=== PATIENT | male | born 1960 | race African-American/Black ===

== ENCOUNTER 2020-04-21 11:46 | Emergency (ER) | payer OTHER, SELFPAY ==
[2020-04-21 12:30] VITALS: BP 133/88; PULSE 84; RESP 18; TEMP 36.8; O2SAT 99; BMI 27.3
[2020-04-21 14:09] LABS: COVID-19 Test Negative (Negative)
[2020-04-21 14:22] LABS: Ethanol < 10 mg/dL
[2020-04-21 14:27] LABS: Amphetamine Screen Urine Not Detected (Not Detect); Barbiturates, Urine Not Detected (Not Detect); Benzodiazepines Screen Urine Not Detected (Not Detect); Cannabinoid Screen Urine Not Detected (Not Detect); Cocaine Screen Urine Not Detected (Not Detect); Opiate Screen Urine Not Detected (Not Detect); Phencyclidine Screen Urine Not Detected (Not Detect)
--- NOTE | 2020-04-21 14:51 | ED_ITS ---
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 The [facility] is requesting U tox, ETOH an COVID-19 test. <Anselmo Padgett NP - Last Filed: 04/21/20 14:56> MD complaint: medical clearance requested <Anselmo Padgett NP - Last Filed: 04/21/20 14:56> Compliant with Home Medications: No <Anselmo Padgett NP - Last Filed: 04/21/20 14:56> Treatments Prior to Arrival: none <Anselmo Padgett NP - Last Filed: 04/21/20 14:56> Related Information Home medications: Previous Rx's Medication Instructions Recorded amlodipine 5 mg PO DAILY #30 tab 04/28/20 baclofen 10 mg PO TID #90 tab 04/28/20 gabapentin 300 mg PO BID #60 cap 04/28/20 <Anselmo Padgett NP - Last Filed: 04/21/20 14:56> Allergies/Adverse reactions: Allergies Allergy/AdvReac Type Severity Reaction Status Date / Time No Known Allergies Allergy Verified 04/21/20 12:34 <Anselmo Padgett NP - Last Filed: 04/21/20 14:56> Review of Systems Review of Systems: Constitutional: No Weight loss, No Fever, No Chills, No Night Sweats, No Fatigue, No Malaise ENT/Mouth: No Hearing loss, No Ear Pain, No Nasal Congestion, No Sinus Pain, No Hoarseness, No sore throat, No Rhinorrhea, No Swallowing Difficulty Eyes: No Eye Pain, No Swelling, No Redness, No Foreign Body, No Discharge, No Vision Changes Cardiovascular: No Chest Pain, No SOB, No Dyspnea on Exertion, No Orthopnea, No Edema, No Palpitations Respiratory: No Cough, No Sputum, No Wheezing, No Smoke Exposure, No Dyspnea Gastrointestinal: No Nausea, No Vomiting, No Diarrhea, No Constipation, No abdominal Pain, No Hematochezia, No Melena Genitourinary: no irregular bleeding, No Dysuria, No Urinary Frequency, No Hematuria, No Urinary Incontinence, No Urgency Musculoskeletal: No joint pain, No Myalgias, No Joint Swelling Skin: No Skin Lesions, No rash Neuro: No Weakness, No Numbness, No Paresthesias, No Loss of Consciousness, No Dizziness, No Headache Psych: No Anxiety/Panic, No Depression, No SI/HI/AH/VH, No Social Issues Heme/Lymph: No Bruising, No Bleeding,No Lymphadenopathy Endocrine: No Polyuria, No Polydipsia, No Temperature Intolerance <Anselmo Padgett NP - Last Filed: 04/21/20 14:56> Yes all other systems are reviewed and are negative <Anselmo Padgett NP - Last Filed: 04/21/20 14:56> PMF Past Medical History Medical History: Medical History (Updated 04/30/20 @ 00:00 by Nancy Daubaldo) High cholesterol HTN (hypertension) <Anselmo Padgett NP - Last Filed: 04/21/20 14:56> Social History Social History: Social History Alcohol intake: former Smoking Status: Current every day smoker Advance Directives: No Advance Directives Information Provided: Yes <Anselmo Padgett NP - Last Filed: 04/21/20 14:56> Physical Exam Vital Signs: Vital Signs: Last Vital Signs Temp 98.2 F 04/21/20 12:30 Pulse 84 04/21/20 12:30 Resp 18 04/21/20 12:30 BP 133/88 04/21/20 12:30 Pulse Ox 99 04/21/20 12:30 Body Mass Index 27.3 Reviewed <Anselmo Padgett NP - Last Filed: 04/21/20 14:56> Vital Signs: Last Vital Signs Temp 98.2 F 04/21/20 12:30 Pulse 84 04/21/20 12:30 Resp 18 04/21/20 12:30 BP 133/88 04/21/20 12:30 Pulse Ox 99 04/21/20 12:30 Body Mass Index 27.3 <Jay Ro MD - Last Filed: 04/30/20 07:09> Const: General: cooperative and healthy appearing; No acute distress or intoxicated appearing <[facility] - Last Filed: 04/21/20 14:56> Nutritional Appearance: average body habitus <[facility] - Last Filed: 04/21/20 14:56> Orientation/consciousness: patient oriented x3 <[facility] - Last Filed: 04/21/20 14:56> HENMT: Head: Yes normal to inspection <[facility] - Last Filed: 04/21/20 14:56> Ears: hearing grossly normal bilaterally <[facility] - Last Filed: 04/21/20 14:56> Eyes: General: appearance normal, both eyes and all related structures <[facility] - Last Filed: 04/21/20 14:56> Visual Moyer: normal visual moyer by confrontation <[facility] - Last Filed: 04/21/20 14:56> Neck: Neck: Yes normal visual inspection and No tender <[facility] - Last Filed: 04/21/20 14:56> Thyroid: Thyroid normal <[facility] - Last Filed: 04/21/20 14:56> Chest: Chest palpation & inspection: normal inspection of the chest <[facility] - Last Filed: 04/21/20 14:56> Resp: Effort & Inspection: normal respiratory effort <[facility] - Last Filed: 04/21/20 14:56> Cardio: Jugular venous distension: no JVD <[facility] - Last Filed: 04/21/20 14:56> GI: Inspection: Yes normal to inspection <[facility] - Last Filed: 04/21/20 14:56> Percussion: Yes normal to percussion <[facility] - Last Filed: 04/21/20 14:56> Auscultation: normal bowel sounds <[facility] - Last Filed: 04/21/20 14:56> : General: Yes no CVA tenderness <[facility]org[facility] - Last Filed: 04/21/20 14:56> Back/Spine/Pelvis: Back: no CVA tenderness <Anselmo BrennanMELIDA jorgensen - Last Filed: 04/21/20 14:56> Skin: General skin exam: no rashes or lesions noted <Anselmo MELIDA Padgett - Last Filed: 04/21/20 14:56> Neuro: General: patient oriented x3 <Anselmomakayla Padgett NP - Last Filed: 04/21/20 14:56> Extrem: General: Yes normal to inspection <Anselmo BrennanMELIDA jorgensen - Last Filed: 04/21/20 14:56> Course Course Course Narrative: I have reviewed the chart <Jay Ro MD - Last Filed: 04/30/20 07:09> MDM - Medical Clearance Lab Data Labs: Lab Results 04/21/20 04/21/20 04/21/20 Range/Units 13:30 13:31 13:31 Urine Opiates Screen Not Detected (Not Detect) Ur Barbiturates Screen Not Detected (Not Detect) Ur Phencyclidine Scrn Not Detected (Not Detect) Ur Amphetamines Screen Not Detected (Not Detect) U Benzodiazepines Scrn Not Detected (Not Detect) Urine Cocaine Screen Not Detected (Not Detect) U Marijuana (THC) Screen Not Detected (Not Detect) Ethyl Alcohol < 10 mg/dL COVID-19 ([facility]) Negative (Negative) COVID-19 Clin Com See Note <Anselmomakayla Padgett NP - Last Filed: 04/21/20 14:56> Lab Results 04/21/20 04/21/20 04/21/20 Range/Units 13:30 13:31 13:31 Urine Opiates Screen Not Detected (Not Detect) Ur Barbiturates Screen Not Detected (Not Detect) Ur Phencyclidine Scrn Not Detected (Not Detect) Ur Amphetamines Screen Not Detected (Not Detect) U Benzodiazepines Scrn Not Detected (Not Detect) Urine Cocaine Screen Not Detected (Not Detect) U Marijuana (THC) Screen Not Detected (Not Detect) Ethyl Alcohol < 10 mg/dL COVID-19 ([facility]) Negative (Negative) COVID-19 Clin Com See Note <Jay Ro MD - Last Filed: 04/30/20 07:09> Discharge Plan Discharge Clinical Impression: Encounter for medical clearance for patient hold <Anselmo Padgett NP - Last Filed: 04/21/20 14:56> Patient Disposition: Home, Self-Care <Anselmo Padgett NP - Last Filed: 04/21/20 14:56> Instructions: Medical Clearance for Substance Abuse Treatment (ED) <Anselmo Padgett NP - Last Filed: 04/21/20 14:56> Additional Instructions: Your COVID-19 test was negative today Your alcohol test was negative Her drug screen test was negative You are medically cleared to go to the [facility] Return if any concerns or worsening symptoms Thank you <Anselmo Padgett NP - Last Filed: 04/21/20 14:56> Prescriptions: No Action amlodipine 5 mg tablet 5 mg PO DAILY Qty: 30 RF: 1 baclofen 10 mg tablet 10 mg PO TID Qty: 90 RF: 0 gabapentin 300 mg capsule 300 mg PO BID Qty: 60 RF: 0 <Anselmo Padgett NP - Last Filed: 04/21/20 14:56> Referrals: Physician,None [Primary Care Provider] - 1 week (Primary care doctor as needed) <Anselmo Padgett NP - Last Filed: 04/21/20 14:56> Interventions: ED Discharge Assessment Last Done: 04/21/20 15:05 <Anselmo Padgett NP - Last Filed: 04/21/20 14:56> Discharge Date/Time: 04/21/20 15:07 <Anselmo Padgett NP - Last Filed: 04/21/20 14:56>
== END 2020-04-21 15:07 | disposition home or self-care (01) ==
PROVIDERS: Nurse Practitioner Primary Care; Emergency Provider Emergency Medicine
DX: Z04.89 Encounter for examination and observation for other specified reasons (principal); Z04.9 Encounter for examination and observation for unspecified reason; Z79.899 Other long term (current) drug therapy; I10 Essential (primary) hypertension; F17.200 Nicotine dependence, unspecified, uncomplicated; Z71.6 Tobacco abuse counseling
CPT/HCPCS: 80307; 80320; 87635; 99283

== ENCOUNTER 2020-04-28 13:38 | Emergency (ER) | payer OTHER, SELFPAY ==
--- NOTE | 2020-04-28 15:03 | ED.GENADULT ---
HPI - General Adult General Chief complaint: General Medical Stated complaint: MED REFILL Time Seen by Provider: 04/28/20 15:03 Source: patient Mode of arrival: ambulatory Limitations: no limitations History of Present Illness HPI narrative: Patient recently read acute the currently at the [facility] presenting requesting refill for his routine medication currently in the process of obtaining primary care doctor. His previous primary care was [place] and since he is new to the area he is looking for a new provider to give him his medications and the staff from the [facility] advised patient come here for refills patient has a med rec with him from the [facility]. Patient uses [facility] on [address]. He offers no other complaints. Relieving factors: none Exacerbating factors: none Related Data Previous Rx's Medication Instructions Recorded amlodipine 5 mg PO DAILY #30 tab 04/28/20 baclofen 10 mg PO TID #90 tab 04/28/20 gabapentin 300 mg PO BID #60 cap 04/28/20 Allergies Allergy/AdvReac Type Severity Reaction Status Date / Time No Known Allergies Allergy Verified 04/21/20 12:34 Review of Systems Review of Systems: Constitutional: No Night Sweats, No Fatigue, No Malaise ENT/Mouth:No Rhinorrhea Eyes: No Discharge Cardiovascular: No Chest Pain, No SOB Respiratory: No Cough, No Sputum, No Wheezing, No Smoke Exposure, No Dyspnea Skin: No Skin Lesions, No rash Neuro: No Weakness, No Numbness, No Paresthesias, No Loss of Consciousness, No Dizziness, No Headache Psych: No Anxiety/Panic, No Depression, No SI/HI/AH/VH, No Social Issues Heme/Lymph: No Bruising, No Bleeding,No Lymphadenopathy Endocrine: No Polyuria, No Polydipsia, No Temperature Intolerance Yes all other systems are reviewed and are negative [facility] Social History Social History Alcohol intake: former Smoking Status: Current every day smoker Advance Directives: No Advance Directives Information Provided: Yes Physical Exam Vital Signs: Vital Signs: Reviewed Const: General: cooperative and healthy appearing; No acute distress or intoxicated appearing Nutritional Appearance: average body habitus Orientation/consciousness: patient oriented x3 Neck: Neck: Yes normal visual inspection and No tender Thyroid: Thyroid normal Chest: Chest palpation & inspection: normal inspection of the chest Resp: Effort & Inspection: normal respiratory effort Cardio: Jugular venous distension: no JVD Skin: General skin exam: no rashes or lesions noted Neuro: General: patient oriented x3 Extrem: General: Yes normal to inspection Course Course Course Narrative: He is requesting refill for his amlodipine he takes 5 mg once daily Also baclofen he takes 10 mg 3 times a day Gabapentin 300 mg twice a day Discharge Plan Discharge Clinical Impression: Medication refill Patient Disposition: Home, Self-Care Instructions: Medicine Refill (ED) Additional Instructions: Your prescriptions are sent to the [facility] in [place] Please follow-up with her primary care doctor as discussed Return if any concerns or worsening symptoms Thank you Prescriptions: New amlodipine 5 mg tablet 5 mg PO DAILY Qty: 30 RF: 1 baclofen 10 mg tablet 10 mg PO TID Qty: 90 RF: 0 gabapentin 300 mg capsule 300 mg PO BID Qty: 60 RF: 0 Referrals: Michelle Sahu MD [Primary Care Provider] - 1 week
[2020-04-28 15:21] VITALS: BP 117/78; PULSE 87; RESP 15; TEMP 36.8; O2SAT 98; BMI 27.5
== END 2020-04-28 15:24 | disposition home or self-care (01) ==
PROVIDERS: Emergency Provider Internal Medicine; PCP Internal Medicine
DX: Z76.0 Encounter for issue of repeat prescription (principal)
CPT/HCPCS: 99283

== ENCOUNTER 2020-06-05 10:29 | Emergency (ER) | payer OTHER, SELFPAY ==
[2020-06-05 12:27] VITALS: BP 144/93; PULSE 88; RESP 16; TEMP 37; O2SAT 97; BMI 28.2
--- NOTE | 2020-06-05 12:39 | ED_ITS ---
HPI - Medical Clearance General Chief complaint: Medical Clearance Stated complaint: covid symptoms Time Seen by Provider: 06/05/20 12:26 Source: patient Mode of arrival: ambulatory Limitations: no limitations History of Present Illness HPI Narrative: Patient presents to the ED for COVID testing. Patient states he needs to be tested for COVID before he go to a living program. Patient denies any symptoms. Related Information Previous Rx's Medication Instructions Recorded amlodipine 5 mg PO DAILY #30 tab 04/28/20 baclofen 10 mg PO TID #90 tab 04/28/20 gabapentin 300 mg PO BID #60 cap 04/28/20 Allergies Allergy/AdvReac Type Severity Reaction Status Date / Time No Known Allergies Allergy Verified 06/05/20 12:29 Review of Systems Review of Systems: Yes all other systems are reviewed and are negative Constitutional: Constitutional: Reports as per HPI and Reports no additional constitutional complaints Eyes: Eyes: Reports as per HPI and Reports no additional eye complaints ENT: Reports system reviewed and no additional complaints, except as documented and Reports as per HPI Cardiovascular: Cardiovascular: Reports as per HPI and Reports no additional cardiovascular complaints Respiratory: Respiratory: Reports as per HPI and Reports no additional respiratory complaints Gastrointestinal: Gastrointestinal: Reports as per HPI and Reports no additional gastrointestinal complaints Musculoskeletal: Musculoskeletal: Reports no additional musculoskeletal complaints and Reports as per HPI Neurologic: Reports system reviewed and no additional complaints, except as documented and Reports as per HPI Psychiatric: Psychiatric: Reports no additional psychiatric complaints and Reports as per HPI PMF Past Medical History Medical History High cholesterol HTN (hypertension) Social History Social History Alcohol intake: former Smoking Status: Current every day smoker Advance Directives: No Advance Directives Information Provided: No Physical Exam Vital Signs: Vital Signs: Last Vital Signs Temp 98.6 F 06/05/20 12:27 Pulse 88 06/05/20 12:27 Resp 16 06/05/20 12:27 BP 144/93 H 06/05/20 12:27 Pulse Ox 97 06/05/20 12:27 Body Mass Index 28.2 Const: General: cooperative, healthy appearing, comfortable, no acute distress, well developed, alert and awake Orientation/consciousness: patient oriented x3 HENMT: Head: Yes normal to inspection and Yes No palpable skull fracture present Eyes: General: appearance normal, both eyes and all related structures Neck: Neck: Yes normal visual inspection, Yes full ROM, Yes no lymphadenopathy, Yes no meningeal signs, Yes trachea midline, Yes supple and No tender Chest: Chest palpation & inspection: normal inspection of the chest and normal palpation of entire chest wall Resp: Effort & Inspection: normal respiratory effort and able to speak in complete sentences Auscultation: clear to auscultation bilaterally Cardio: Jugular venous distension: no JVD Heart sounds: S1 normal heart sound present and S2 normal heart sound present GI: Inspection: Yes normal to inspection Palpation (GI): Soft to palpation, not firm, nontender, no guarding and not rigid : General: No CVA tenderness and Yes no CVA tenderness Back/Spine/Pelvis: Back: no CVA tenderness, No CVA tenderness and No back tenderness Skin: General skin exam: no rashes or lesions noted Neuro: General: patient oriented x3, no meningeal signs and CN's II-XI intact bilaterally Cranial nerves: Yes CN's II-XII intact bilaterally Extrem: General: Yes normal to inspection and Yes full ROM Psych: Appearance: grossly normal, well kempt and not disheveled Course Course Course Narrative: Patient swabbed for COVID virus Reevaluation(s) Reevaluation #1: Patient walked out before COVID swab results to come back. Time: 15:16 Reevaluation #2: Patient found in the waiting room. Patient COVID swab negative. Patient given results for follow-up with his program. Time: 16:00 MDM - Medical Clearance MDM Narrative Medical decision making narrative: Normal exam Lab Data Labs: Lab Results 06/05/20 Range/Units 14:26 Coronavirus (PCR) NEGATIVE (Negative) Influenza Type A (PCR) NEGATIVE (Negative) Influenza Type B (PCR) NEGATIVE (Negative) RSV RNA Qual (PCR) NEGATIVE (Negative) Discharge Plan Discharge Clinical Impression: Normal exam Patient Disposition: Home, Self-Care Instructions: Normal Exam (ED) Additional Instructions: Return to the ED for any complaint Prescriptions: No Action amlodipine 5 mg tablet 5 mg PO DAILY Qty: 30 RF: 1 baclofen 10 mg tablet 10 mg PO TID Qty: 90 RF: 0 gabapentin 300 mg capsule 300 mg PO BID Qty: 60 RF: 0 Print Language: Albanian
[2020-06-05 16:11] LABS: Influenza A PCR NEGATIVE (Negative); Influenza B PCR NEGATIVE (Negative); Resp Syncy Virus RNA Qual PCR NEGATIVE (Negative); SARS COV2 PCR INHOUSE NEGATIVE (Negative)
== END 2020-06-05 17:40 | disposition home or self-care (01) ==
PROVIDERS: Physician Assistant; Emergency Provider Emergency Medicine Emergency Medical Services
DX: Z20.828 Contact with and (suspected) exposure to other viral communicable diseases (principal); I10 Essential (primary) hypertension
CPT/HCPCS: 0241U; 36415; 99283

== ENCOUNTER 2021-03-07 07:41 | Emergency (ER) | payer OTHER, SELFPAY ==
[2021-03-07 07:43] VITALS: BP 175/100; PULSE 94; RESP 16; TEMP 36.3; O2SAT 95; BMI 27.7
[2021-03-07 08:15] VITALS: BP 148/98; PULSE 97; RESP 20; O2SAT 98
--- NOTE | 2021-03-07 08:45 | ECG_ITS ---
Test Reason : GEN MED Blood Pressure : / mmHG Vent. Rate : 085 BPM Atrial Rate : 085 BPM P-R Int : 158 ms QRS Dur : 084 ms QT Int : 374 ms P-R-T Axes : 064 014 030 degrees QTc Int : 445 ms Normal sinus rhythm Voltage criteria for left ventricular hypertrophy Abnormal ECG No previous ECGs available Referred By: Meghan Vallejo Electronically Signed By:ZE DIALLO MD
--- NOTE | 2021-03-07 08:47 | ED.GENADULT ---
HPI - General Adult General Chief complaint: General Medical Stated complaint: seeking detox Time Seen by Provider: 03/07/21 08:17 Source: patient Mode of arrival: ambulatory Limitations: no limitations History of Present Illness HPI narrative: 60 year male pmhx bipolar, schizophrenia, and alcohol abuse disorder presents to the emergency depart seeking alcohol detox. He states that he is heavily been drinking for the past week, he reports he drank 1 pt at 03:00 today, and he had a shot prior to his arrival. He states he is afraid, because he is content to alcohol withdrawal, as caused him to have seizures in the past. He also admits to using crack cocaine yesterday. He has previously been in detox, which he states helped him a lot. Today he has vague complaints of frontal headache, which started this morning. And abdominal pain, which again started this morning. He states that abdominal pain is localized to the middle of his abdomen, it does not radiate and is dull in quality. He denies nausea, vomiting, chest pain, shortness of breath, tremors, altered mental status, weakness, fevers, chills. Related Data Previous Rx's Medication Instructions Recorded amlodipine 5 mg tablet 5 mg PO DAILY #30 tab 04/28/20 baclofen 10 mg tablet 10 mg PO TID #90 tab 04/28/20 gabapentin 300 mg capsule 300 mg PO BID #60 cap 04/28/20 Allergies Allergy/AdvReac Type Severity Reaction Status Date / Time No Known Allergies Allergy Verified 06/05/20 12:29 Review of Systems Review of Systems: Constitutional : No Weight loss, No Fever, No Chills, No Night Sweats, No Fatigue, NoMalaise ENT/Mouth: No ear pain, No sore throat, No Difficulty swallowing Cardiovascular : No Chest Pain, No SOB, No Dyspnea on Exertion,NoEdema, No Palpitations Respiratory : No Cough, No Sputum, No Wheezing, No Dyspnea Gastrointestinal : No Nausea, No Vomiting, + abdominal pain, No Diarrhea, No blood streaked emesis, No coffee-ground emesis, No gross hematemesis Genitourinary : No Dysuria, No Urinary Frequency, No Hematuria,No Urinary Incontinence, No Urgency, No Flank Pain Musculoskeletal : No joint pain, No Myalgias, No Joint Swelling Skin : No Skin Lesions, No rash Neuro : No Weakness, No Numbness, No Paresthesias, No Loss of Consciousness, NoDizziness, + Headache Psych : No Social Issues, Heme/Lymph: No Bruising, No Bleeding,No Lymphadenopathy Endocrine : No Polyuria, No Polydipsia, No Temperature Intolerance Yes all other systems are reviewed and are negative [facility] Past Medical History Medical History High cholesterol HTN (hypertension) Social History Social History Alcohol intake: former Advance Directives: No Physical Exam Vital Signs: Vital Signs: Last Vital Signs Temp 97.3 F 03/07/21 15:42 Pulse 97 03/07/21 15:42 Resp 16 03/07/21 15:42 BP 158/97 H 03/07/21 15:42 Pulse Ox 97 03/07/21 15:42 Body Mass Index 27.7 vital signs have been reviewed as normal and appeared to be correct. Blood pressure normal. Heart rate normal. Respiration rate normal. Temperature normal. Oxygen saturation normal. Appearance: Alert. Oriented X3. No acute distress. No termors, No labored breathing, No diaphoresis, No fasiculations, No asterixis Head: Normal external exam. Normocephalic. Atraumatic. No Garcia signs noted. No raccoon eyes noted Eyes: PERRLA. EOMI. Conjunctiva and sclera normal. Eyelids normal. Neck: Normal inspection. Neck supple. FROM. No adenopathy. Thyroid Normal. No meningeal signs CVS: Normal heart rate and rhythm. Heart sound normal. Pulses normal throughout. No murmurs/rales/gallops. Respiratory: No respiratory distress. Breath sounds normal. No wheezes/rales/rhonchi noted. Chest nontender. No accessory muscle usage noted or decreased air movement noted. Abdomen: Soft and nontender. Bowel sounds normal in all 4 quadrants. No distention noted. No organomegaly noted. No visible injury noted. Back: No CVA tenderness. Full range of motion noted. No rashes/lesion/induration/fluctuance or signs of infection noted. Skin: Skin warm and dry. Normal skin color. Normal skin turgor. No rashes/lesions/lacerations noted. Extremities: No lower extremity edema. Extremities exhibit normal range of motion. Extremities nontender. Neuro: Oriented X 3. No motor deficit. No sensory deficit. Reflexes normal. Normal steady gait. No focal neuro deficits noted. Vascular: + radial pulses/+ 2 distal pedal pulses/+2 dorsalis pedis b/l. Normal cap refill. No cyanosis noted to upper extremity nails and lower extremity toes nails. Course Course Course Narrative: 8:45am This is a 61 yo male pmhx bipolar d/o, schizophrenia, and alcohol use disorder presenting to the emergency department seeking detox. He states his last drinks were early this morning, he states he had 1 pt at 03:00, and he had a shot right before his arrival to the emergency department. He states he has gone into alcohol withdraw, to the point where he has gotten seizures. He is going to detox before, and has had great success. He also admits to crack cocaine use yesterday. He mentions a vague headache, and abdominal pain. Physical exam is significant for a rapid rate, normal rhythm, likely sinus tachycardia. There is no asterixis or fasciculations noted. There is no tremors. No diaphoresis. No pain to palpation of abdomen. Patient is resting comfortably on the stretcher, in no acute distress. At this time he is not in acute alcohol withdraw. He will be closely monitored for signs and symptoms of alcohol withdraw. He will be placed on the athletic monitor. Plan at this time is to obtain basic labs, lipase, drug screen, ETOH, Mag, UA, drug screen, EKG. He palmer be given NS, ativan and tylenol for his headaches. Reevaluation(s) Reevaluation #1: Labs show no acute infection, no electrolyte abnormalities noted, ethyl alcohol less than 10. COVID negative. Drug tox + cocaine and marijuana. Patient is feeling much better, after fluids, and Ativan. Care team has spoken to the patient, they will be looking for a detox bed for him. At this time he is medically cleared and placed in physician observation Time: 10:15 Medical Decision Making Medical Records Medical records reviewed: Yes I reviewed the patient's medical records. Lab Data Lab results reviewed: Yes I reviewed the patient's lab results. Result diagrams: 03/07/21 09:26 03/07/21 09:26 Labs: Lab Results 03/07/21 03/07/21 03/07/21 Range/Units :26 09:26 09:26 WBC 10.1 (4.8-10.8) X10*3/uL RBC 4.94 (4.60-5.80) X10*6/uL Hgb 15.0 (14.0-18.0) g/dl Hct 43.9 (42-52) % MCV 88.9 (80-98) fL MCH 30.4 (27.0-33.0) pg MCHC 34.2 (31.0-36.0) g/dl RDW 12.3 (11.0-16.0) % Plt Count 211 (160-400) X10*3/uL MPV 10.3 (9.4-12.4) fL Immature Gran % (Auto) 0.5 H (0.0-0.4) % Neut % (Auto) 74.9 H (45-73) % Lymph % (Auto) 15.4 L (20-40) % [place] % (Auto) 8.3 (2-11) % Eos % (Auto) 0.4 (0-4) % Baso % (Auto) 0.5 (0-2) % Lymph # (Auto) 1.6 (1.2-4.9) X10*3/uL [place] # (Auto) 0.8 (0.1-1.2) X10*3/uL Eos # (Auto) 0.0 (0.0-0.4) X10*3/uL Baso # (Auto) 0.1 (0.0-0.2) X10*3/uL Abs Immat Gran (auto) 0.05 H (0.00-0.03) X10*3/uL Absolute Neuts (auto) 7.6 (2.0-8.3) X10*3/uL Absolute Nucleated RBC 0.000 (0.0-0.012) X10*3/uL Nucleated RBC % (auto) 0.0 (0.0-0.2) /100WBC Sodium 143 (135-145) mmol/L Potassium 4.8 (3.3-5.1) mmol/L Chloride 106 (96-108) mmol/L Carbon Dioxide 29 (22-29) mmol/L Anion Gap 13 (12-20) BUN 14 (9-16) mg/dL Creatinine 1.05 (0.5-1.4) mg/dL Estim Creat Clear Calc 87.1 Estimated GFR > 60 Random Glucose 88 (60-115) mg/dL Calcium 9.8 (8.4-10.2) mg/dL Magnesium 2.5 (1.6-2.6) mg/dL Total Bilirubin 0.5 (0.0-1.0) mg/dL AST 30 (5-37) U/L ALT 38 (0-40) U/L Alkaline Phosphatase 92 (39-117) U/L Total Protein 8.2 H (6.5-8.0) g/dL Albumin 4.6 (3.5-5.0) g/dL Lipase 73 (8-78) U/L Urine Color Urine Appearance Urine pH (5.0-8.0) Ur Specific [place] (1.005-1.025) Urine Protein (NEG-TRACE) MG/DL Urine Glucose (UA) (NEG) MG/DL Urine Ketones (NEG) MG/DL Urine Blood (NEG) Urine Nitrite (NEG) Ur Leukocyte Esterase (NEG) Urine Opiates Screen (Not Detect) Urine Fentanyl Screen (Not Detect) Ur Barbiturates Screen (Not Detect) Ur Phencyclidine Scrn (Not Detect) Ur Amphetamines Screen (Not Detect) U Benzodiazepines Scrn (Not Detect) Urine Cocaine Screen (Not Detect) U Marijuana (THC) Screen (Not Detect) Ethyl Alcohol < 10 mg/dL COVID-19 ([facility]ALDO) COVID-19 Clin Com 03/07/21 03/07/21 03/07/21 Range/Units 11:28 12:17 17:22 WBC (4.8-10.8) X10*3/uL RBC (4.60-5.80) X10*6/uL Hgb (14.0-18.0) g/dl Hct (42-52) % MCV (80-98) fL MCH (27.0-33.0) pg MCHC (31.0-36.0) g/dl RDW (11.0-16.0) % Plt Count (160-400) X10*3/uL MPV (9.4-12.4) fL Immature Gran % (Auto) (0.0-0.4) % Neut % (Auto) (45-73) % Lymph % (Auto) (20-40) % [place] % (Auto) (2-11) % Eos % (Auto) (0-4) % Baso % (Auto) (0-2) % Lymph # (Auto) (1.2-4.9) X10*3/uL [place] # (Auto) (0.1-1.2) X10*3/uL Eos # (Auto) (0.0-0.4) X10*3/uL Baso # (Auto) (0.0-0.2) X10*3/uL Abs Immat Gran (auto) (0.00-0.03) X10*3/uL Absolute Neuts (auto) (2.0-8.3) X10*3/uL Absolute Nucleated RBC (0.0-0.012) X10*3/uL Nucleated RBC % (auto) (0.0-0.2) /100WBC Sodium (135-145) mmol/L Potassium (3.3-5.1) mmol/L Chloride (96-108) mmol/L Carbon Dioxide (22-29) mmol/L Anion Gap (12-20) BUN (9-16) mg/dL Creatinine (0.5-1.4) mg/dL Estim Creat Clear Calc Estimated GFR Random Glucose (60-115) mg/dL Calcium (8.4-10.2) mg/dL Magnesium (1.6-2.6) mg/dL Total Bilirubin (0.0-1.0) mg/dL AST (5-37) U/L ALT (0-40) U/L Alkaline Phosphatase (39-117) U/L Total Protein (6.5-8.0) g/dL Albumin (3.5-5.0) g/dL Lipase (8-78) U/L Urine Color Urine Appearance Urine pH (5.0-8.0) Ur Specific [place] (1.005-1.025) Urine Protein (NEG-TRACE) MG/DL Urine Glucose (UA) (NEG) MG/DL Urine Ketones (NEG) MG/DL Urine Blood (NEG) Urine Nitrite (NEG) Ur Leukocyte Esterase (NEG) Urine Opiates Screen Not Detected (Not Detect) Urine Fentanyl Screen Not Detected (Not Detect) Ur Barbiturates Screen Not Detected (Not Detect) Ur Phencyclidine Scrn Not Detected (Not Detect) Ur Amphetamines Screen Not Detected (Not Detect) U Benzodiazepines Scrn Not Detected (Not Detect) Urine Cocaine Screen POSITIVE H (Not Detect) U Marijuana (THC) Screen POSITIVE H (Not Detect) Ethyl Alcohol mg/dL COVID-19 (RONALDO) TNP Negative COVID-19 Clin Com See Note See Note 03/07/21 Range/Units 17:23 WBC (4.8-10.8) X10*3/uL RBC (4.60-5.80) X10*6/uL Hgb (14.0-18.0) g/dl Hct (42-52) % MCV (80-98) fL MCH (27.0-33.0) pg MCHC (31.0-36.0) g/dl RDW (11.0-16.0) % Plt Count (160-400) X10*3/uL MPV (9.4-12.4) fL Immature Gran % (Auto) (0.0-0.4) % Neut % (Auto) (45-73) % Lymph % (Auto) (20-40) % [place] % (Auto) (2-11) % Eos % (Auto) (0-4) % Baso % (Auto) (0-2) % Lymph # (Auto) (1.2-4.9) X10*3/uL [place] # (Auto) (0.1-1.2) X10*3/uL Eos # (Auto) (0.0-0.4) X10*3/uL Baso # (Auto) (0.0-0.2) X10*3/uL Abs Immat Gran (auto) (0.00-0.03) X10*3/uL Absolute Neuts (auto) (2.0-8.3) X10*3/uL Absolute Nucleated RBC (0.0-0.012) X10*3/uL Nucleated RBC % (auto) (0.0-0.2) /100WBC Sodium (135-145) mmol/L Potassium (3.3-5.1) mmol/L Chloride (96-108) mmol/L Carbon Dioxide (22-29) mmol/L Anion Gap (12-20) BUN (9-16) mg/dL Creatinine (0.5-1.4) mg/dL Estim Creat Clear Calc Estimated GFR Random Glucose (60-115) mg/dL Calcium (8.4-10.2) mg/dL Magnesium (1.6-2.6) mg/dL Total Bilirubin (0.0-1.0) mg/dL AST (5-37) U/L ALT (0-40) U/L Alkaline Phosphatase (39-117) U/L Total Protein (6.5-8.0) g/dL Albumin (3.5-5.0) g/dL Lipase (8-78) U/L Urine Color YELLOW Urine Appearance CLEAR Urine pH 6.0 (5.0-8.0) Ur Specific [place] 1.015 (1.005-1.025) Urine Protein NEG (NEG-TRACE) MG/DL Urine Glucose (UA) NEG (NEG) MG/DL Urine Ketones NEG (NEG) MG/DL Urine Blood NEG (NEG) Urine Nitrite NEG (NEG) Ur Leukocyte Esterase NEG (NEG) Urine Opiates Screen (Not Detect) Urine Fentanyl Screen (Not Detect) Ur Barbiturates Screen (Not Detect) Ur Phencyclidine Scrn (Not Detect) Ur Amphetamines Screen (Not Detect) U Benzodiazepines Scrn (Not Detect) Urine Cocaine Screen (Not Detect) U Marijuana (THC) Screen (Not Detect) Ethyl Alcohol mg/dL COVID-19 ([facility]ALDO) COVID-19 Clin Com ECG Data Attestation: I personally reviewed and interpreted this ECG as follows: Prior ECG tracings: not available for review Interpretation: Plan trachea rate 85 TX interval normal QRS normal QT/QTC normal. EKG shows normal sinus rhythm with left ventricular hypertrophy. There is no ST elevations, no T-wave inversions. No signs of acute ischemia. There is no previous EKG for comparison. Discharge Plan Discharge Clinical Impression: Alcohol abuse Instructions: Alcohol Use Disorder (ED) Prescriptions: No Action amlodipine 5 mg tablet 5 mg PO DAILY Qty: 30 RF: 1 baclofen 10 mg tablet 10 mg PO TID Qty: 90 RF: 0 gabapentin 300 mg capsule 300 mg PO BID Qty: 60 RF: 0 Referrals: Physician,Nonstaff [Primary Care Provider] - 2 days (your pcp) Print Language: Polish
[2021-03-07] MEDS: LORazepam 1 MG TABLET PO (09:09)
[2021-03-07] MEDS: Acetaminophen 325 MG TABLET 650 MG PO (09:09)
[2021-03-07] MEDS: 0.9 % Sodium Chloride 1,000 ML 999 ML IVCONT (09:26)
[2021-03-07 09:30] LABS: MANUAL DIFF FLAG NO
--- NOTE | 2021-03-07 09:31 | PC.NURSE ---
Patient awake and alert. Skin normal for ethnicity, warm, diaphoretic. NSR via tele. patient willingly seeking detox from alcohol. states that he has been a daily vodka drinker for 5 years and will drink as much as he can. States he stopped dirnking at 3am this morning and then drank 1 nip this morning before coming to ED. Patient medicated as ordered. IV established and labs obtained. patient aware of plan of care.
[2021-03-07 09:32] LABS: Basophils Absolute Auto 0.1 X10*3/uL (0.0-0.2); Basophils Percent Auto 0.5 % (0-2); Eosinophils Percent Auto 0.4 % (0-4); Hematocrit 43.9 % (42-52); Imm Gran Abs Auto 0.05 X10*3/uL (0.00-0.03); Imm Gran Pct Auto 0.5 % (0.0-0.4); Lymphocytes Absolute Auto 1.6 X10*3/uL (1.2-4.9); Lymphocytes Percent Auto 15.4 % (20-40); Mean Corpuscular HGB Conc 34.2 g/dl (31.0-36.0); Mean Corpuscular Hemoglobin 30.4 pg (27.0-33.0); Mean Corpuscular Volume 88.9 fL (80-98); Mean Platelet Volume 10.3 fL (9.4-12.4); Monocytes Absolute Auto 0.8 X10*3/uL (0.1-1.2); Monocytes Percent Auto 8.3 % (2-11); Neutrophils Absolute Auto 7.6 X10*3/uL (2.0-8.3); Neutrophils Percent Auto 74.9 % (45-73); Platelet Count 211 X10*3/uL (160-400); Red Blood Count 4.94 X10*6/uL (4.60-5.80); Red Cell Distribution Width 12.3 % (11.0-16.0); White Blood Count 10.1 X10*3/uL (4.8-10.8)
[2021-03-07 09:53] LABS: Ethanol < 10 mg/dL
[2021-03-07 09:56] LABS: Alanine Aminotransferase 38 U/L (0-40); Albumin Level 4.6 g/dL (3.5-5.0); Alkaline Phosphatase 92 U/L (39-117); Anion Gap 13 (12-20); Aspartate Amino Transferase 30 U/L (5-37); Bilirubin Total 0.5 mg/dL (0.0-1.0); Blood Urea Nitrogen 14 mg/dL (9-16); Calcium 9.8 mg/dL (8.4-10.2); Carbon Dioxide 29 mmol/L (22-29); Chloride 106 mmol/L (96-108); Creatinine Clr Calc Pharmacy 87.1; Estimated Glomerular Filt Rate > 60; Glucose Random 88 mg/dL (60-115); Lipase 73 U/L (8-78); Magnesium 2.5 mg/dL (1.6-2.6); Potassium 4.8 mmol/L (3.3-5.1); Sodium 143 mmol/L (135-145); Total Protein 8.2 g/dL (6.5-8.0)
[2021-03-07 11:28] VITALS: BP 139/85; PULSE 88; RESP 18; TEMP 36.8; O2SAT 97
--- NOTE | 2021-03-07 11:29 | PC.NURSE ---
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
[2021-03-07 12:09] LABS: IDNOW Serial# 9DD0AD1C
--- NOTE | 2021-03-07 12:14 | PC.NURSE ---
lab called and requested a new order for covid swab and to have it reswabbed, the covid swab wasnt able to run in their machine. will notify provider as well
[2021-03-07 12:38] LABS: COVID-19 Test Negative (Negative)
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
--- NOTE | 2021-03-07 13:27 | PC.NURSE ---
patient transferred into behavior pod, pleasant and spotaneous, laid down for a nap almost immedicately will reassess for etoh wdrawal sx around 2pm
[2021-03-07 15:42] VITALS: BP 158/97; PULSE 97; RESP 16; TEMP 36.3; O2SAT 97
[2021-03-07 17:40] LABS: Appearance Urine CLEAR; Color Urine YELLOW; Glucose Urine UA NEG (NEG); Leukocyte Esterase Urine NEG (NEG); Nitrite Urine NEG (NEG); Specific Gravity - Urine 1.015 (1.005-1.025); Urine Blood NEG (NEG); Urine Ketones NEG (NEG); Urine Protein NEG (NEG-TRACE)
[2021-03-07 17:55] LABS: Amphetamine Screen Urine Not Detected (Not Detect); Barbiturates, Urine Not Detected (Not Detect); Benzodiazepines Screen Urine Not Detected (Not Detect); Cannabinoid Screen Urine POSITIVE (Not Detect); Cocaine Screen Urine POSITIVE (Not Detect); Fentanyl, urine Not Detected (Not Detect); Opiate Screen Urine Not Detected (Not Detect); Phencyclidine Screen Urine Not Detected (Not Detect)
[2021-03-08 03:57] VITALS: BP 138/99; PULSE 86; RESP 17; TEMP 36.8; O2SAT 97
--- NOTE | 2021-03-08 05:10 | PC.NURSE ---
Patient slept through the night, no distress observed/reported, patient was out of room x 1 for bathroom use and back, behavior appropriate, no medication at this time, patient is waiting for [facility] bed at [facility] in [place], acid recovery operator is involved with bed search, VSS, will continue to monitor.
--- NOTE | 2021-03-08 06:58 | PC.NURSE ---
patient appears in no distress, remains asleep by appearance at present, patient appears in no distress
--- NOTE | 2021-03-08 09:38 | MHC.RECOVSUP ---
Recovery Support note: This proposal writer followed up with patient to discuss plan for the day. Patient continues to express interest in detox. This proposal writer explained to patient that he did not have any alcohol in his system when he presented to the hospital and that it has been over 24 hours and he has not had any withdrawal symptoms. This proposal writer explained to patient that he may be declined from detox facilities due to not having a need for detox. Patient became frustrated and requested to leave. This proposal writer offered to transport patient to an ATS waiting room to go as a walk in and patient declined. Patient has been in contact with the [facility] usp and he is requesting to be transported there at this time. RN and ED provider aware. This proposal writer will attempt to secure transportation via [employer].
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
== END 2021-03-08 09:56 | disposition home or self-care (01) ==
PROVIDERS: Physician Assistant Medical; Emergency Provider Emergency Medicine Emergency Medical Services
DX: F10.129 Alcohol abuse with intoxication, unspecified (principal); Y90.0 Blood alcohol level of less than 20 mg/100 ml; F20.9 Schizophrenia, unspecified; Z20.822 Contact with and (suspected) exposure to COVID-19; Z79.899 Other long term (current) drug therapy
CPT/HCPCS: 36415; 80053; 80307; 81003; 82077; 83690; 83735; 85025; 87635; 93005; 96360; 99284; 99285

== ENCOUNTER 2022-12-02 09:33 | Emergency (ER) | payer MEDICAID, SELFPAY ==
--- NOTE | 2022-12-02 09:36 | ED.GENADULT ---
HPI - General Adult General Chief complaint: Abdominal Pain Stated complaint: N/V/D X3 DAYS PER EMS Time Seen by Provider: 12/02/22 09:35 Source: patient and EMS Mode of arrival: EMS Limitations: no limitations History of Present Illness HPI narrative: 62 year old male patient with a history of alcohol abuse (sober 1 year), bipolar disorder, and schizophrenia presents to the ED today with a 3 day history of vague abdominal pain, nausea, vomiting and diarrhea. He states he has not been able to keep solids or liquids down since Tuesday and his symptoms have been getting worse. He has not tried anything to remedy his symptoms. Patient states that his neighbor has had the same symptoms from drinking the water. He denies other sick contact and any prior cold or flu like symptoms. He is not taking any current medications and denies allergies. Patient denies any dizziness, lightheadedness, fever, chills, blurry vision, double vision, loss of vision, chest pain, difficulty breathing, shortness of breath, back pain, night sweats, pain with urination, increased urinary frequency, increased urinary urgency, blood in his urine or stool, syncope or a near syncopal episode, recent trauma or falls, bowel incontinence, bladder incontinence, bowel retention, bladder retention, or any other complaints at this time. Onset (ago): day(s) (3 days) Location: abdomen Radiation: non-radiation Severity: mild Severity scale (1-10): 2 Quality: aching and sharp Pain Consistency: intermittent Relieving factors: none Exacerbating factors: eating Associated symptoms: fever/chills (chills), loss of appetite and nausea/vomiting Treatments prior to arrival: none Related Data Previous Rx's Medication Instructions Recorded amlodipine 5 mg tablet 5 mg PO DAILY #30 tabs 04/28/20 baclofen 10 mg tablet 10 mg PO TID #90 tabs 04/28/20 gabapentin 300 mg capsule 300 mg PO BID #60 caps 04/28/20 Allergies Allergy/AdvReac Type Severity Reaction Status Date / Time No Known Allergies Allergy Verified 06/05/20 12:29 Review of Systems Constitutional: Constitutional: Denies body ache(s), Denies chills, Denies fever(s) and Denies night sweats Eyes: Eyes: Reports no additional eye complaints, Denies blurry vision, Denies change in vision, Denies diplopia, Denies eye discharge, Denies loss of vision and Denies eye pain ENT: Denies dizziness Cardiovascular: Cardiovascular: Reports no additional cardiovascular complaints, Denies chest pain, Denies lightheadedness, Denies Loss of Consciousness and Denies dyspnea Respiratory: Respiratory: Reports no additional respiratory complaints and Denies dyspnea Gastrointestinal: Gastrointestinal: Reports abdominal pain, Denies melena, Denies hematochezia, Reports change in bowel habits, Denies change in stool character, Reports GI cramping, Reports diarrhea, Reports nausea and Reports vomiting Genitourinary: Genitourinary: Reports no additional male genitourinary complaints, Denies hematuria, Denies oliguria, Denies difficulty urinating, Denies dysuria, Denies urinary frequency, Denies urinary hesitancy, Denies urinary incontinence and Denies urinary urgency Musculoskeletal: Musculoskeletal: Reports no additional musculoskeletal complaints, Denies numbness and Denies tingling Neurologic: Denies dizziness, Denies loss of vision, Denies numbness and Denies tingling Psychiatric: Psychiatric: Reports no additional psychiatric complaints Endocrine: Endocrine: Reports no additional endocrine complaints Hematologic/Lymphatic: Hematologic/Lymphatic: Reports no additional hematologic/lymphatic complaints Allergic/Immunologic: Allergic/Immunologic: Reports no additional allergic/immunologic complaints [facility] Past Medical History Attestation statement: The following information was validated with the patient. Source: old records reviewed and nursing notes reviewed Medical History High cholesterol HTN (hypertension) Social History Social History Alcohol intake: never Smoked in Last 30 Days: Yes Use of substances other than those prescribed or required for medical reasons: Yes Substance Use Type: Marijuana Advance Directives: No Advance Directives Information Provided: Yes Physical Exam ED Vital Signs: Vital Signs - 24 hr 12/02/22 09:41 12/02/22 09:42 12/02/22 09:42 Temperature 98.7 F 98.7 F 98.7 F Pulse Rate 89 89 89 Respiratory Rate 16 18 18 Blood Pressure 130/85 130/85 130/85 Pulse Oximetry 98 98 98 Oxygen Delivery Method Room Air Room Air Room Air 12/02/22 12:05 Temperature 98.6 F Pulse Rate 81 Respiratory Rate 16 Blood Pressure 134/80 Pulse Oximetry 98 Oxygen Delivery Method Room Air BMI result Body Mass Index 22.7 Const General: cooperative, no acute distress, alert and awake Nutritional Appearance: well nourished Orientation/consciousness: patient oriented x3 Limitations: no limitations HENMT Head: Yes normal to inspection and Yes atraumatic Ears: hearing grossly normal bilaterally and external ears normal General nose exam: Normal external nose present, no nasal discharge noted and no epistaxis Face and sinus: Yes normal facial exam, No abrasion and No laceration Mouth: Normal oral and palatal mucosa present, no drooling and no muffled voice Eyes General: appearance normal, both eyes and all related structures Periorbital: periorbital findings normal Eyelids: Yes eyelids normal Conjunctivae: conjunctivae normal Pupils: Equal, round and reactive pupils present EOM: EOMs intact bilaterally Neck Neck: Yes normal visual inspection, Yes full ROM and Yes no lymphadenopathy Chest Chest palpation & inspection: normal inspection of the chest Resp Effort & Inspection: normal respiratory effort and able to speak in complete sentences GI Inspection: Yes normal to inspection Palpation (GI): Soft to palpation, not firm, Tenderness to palpation present (GI) in the LLQ and in the RUQ; not at McBurney's point and with no rebound tenderness, no guarding and not rigid Percussion: Yes normal to percussion Neuro General: patient oriented x3 and moves all extremities Cranial nerves: Yes Equal, round and reactive pupils present Cognition (Neuro): normal cognition Motor exam (neuro): 5/5 motor strength present throughout Sensory Exam: Normal double simultaneous stimulation for sensation Coordination: [id number] test normal Extrem General: Yes normal to inspection, Yes full ROM and Yes capillary refill normal Psych Appearance: grossly normal Mental Status: mental status grossly normal Affect: normal affect Attitude: cooperative Thought process: Normal thought process present Thought content: Normal thought content present Insight: Good insight present (Psych) Medications Administered Generic Name Dose Route Start Last Admin Trade Name Freq PRN Reason Stop Dose Admin Sodium Chloride 1,000 mls @ 999 mls/hr 12/02/22 15:45 12/02/22 15:45 Ns IV 12/02/22 16:45 999 mls/hr .Q1H1M AYSE Administration Discontinued Medications Generic Name Dose Route Start Last Admin Trade Name Freq PRN Reason Stop Dose Admin Sodium Chloride 1,000 mls @ 999 mls/hr 12/02/22 09:45 12/02/22 11:48 Ns IV 12/02/22 10:45 Infused .Q1H1M AYSE Infusion Iohexol 85 ml 12/02/22 14:44 12/02/22 14:44 Iohexol 350 Mg/Ml 100 Ml Infus..Btl IV 12/02/22 14:45 85 ml ONCE ONE Administration Lorazepam 2 mg 12/02/22 15:32 12/02/22 15:45 Lorazepam 2 Mg/Ml Vial IVPUSH 12/02/22 15:33 2 mg ONCE ONE Administration Ondansetron HCl 4 mg 12/02/22 09:44 12/02/22 10:10 Ondansetron Hcl 4 Mg/2 Ml Vial IVPUSH 12/02/22 09:45 4 mg ONCE ONE Administration Medical Decision Making Medical Decision Making [facility] Narrative: Patient is a 62 year old assigned male at with a history of alcohol abuse, bipolar disorder, and schizophrenia presenting to the emergency department today with nausea, vomiting, diarrhea, and vague abdominal pain. Patient's physical exam was as noted in the physical exam portion of this chart. Patient's blood work showed markedly elevated LFTs including a bilirubin of 1.4, AST of 554 and an ALT of 1073. The rest of the patient's labs were grossly normal. Patient's abdominal US showed a dilated distal CBD at the level of the pancreatic head, no echogenic stone or mass seen within the CBD. Radiologist recommends CT abdomen with and without contrast to evaluate any pancreatic head or intraductal lesion. I consulted with GI who agreed that a CT with and without is appropriate. CT scan has been completed, awaiting radiologist reading. I explained my physical exam findings as well as all test results to the patient and the patient's mother. I answered all questions asked by the patient and the patient's mother. Patient received IV fluids and IV zofran. Patient became very irritated and requested to leave. However, after further discussion, the patient agreed to stay for his CT results and treatment plan. Patient signed out to [facility] [employer] pending CT result. Differential Diagnosis Differential Diagnoses: The differential diagnosis associated with the presentation includes Cirrhosis Hepatitis Elevated LFTs Biliary colic Gastroenteritis Choleangitis Cholecystitis Pancreatic mass Pancreatic lesion Admission/Observation Consideration of admission/observation: Escalation of care including admission/observation considered Patient may be admitted, disposition is depending on CT result. Consult Healthcare Provider Management of the patient was discussed with: Attendance Secretary (spoke with GI as noted in the MDM portion of this chart. ) Lab Data MDM Lab Attestation statement: I reviewed the patient's lab results. My interpretation of these lab results is in the MDM portion of this note. 12/02/22 09:52 12/02/22 09:58 Labs: Lab Results 12/02/22 12/02/22 12/02/22 Range/Units 09:52 09:58 10:07 WBC 10.5 (4.8-10.8) X10*3/uL RBC 4.49 L (4.60-5.80) X10*6/uL Hgb 13.7 L (14.0-18.0) g/dl Hct 39.0 L (42.0-52.0) % MCV 86.9 (80.0-98.0) fL MCH 30.5 (27.0-33.0) pg MCHC 35.1 (31.0-36.0) g/dl RDW 12.2 (11.0-16.0) % Plt Count 173 (160-400) X10*3/uL MPV 10.9 (9.4-12.4) fL Immature Gran % (Auto) 0.3 (0.0-0.4) % Neut % (Auto) 77.1 H (45-73) % Lymph % (Auto) 13.4 L (20-40) % Marin % (Auto) 8.4 (2-11) % Eos % (Auto) 0.5 (0-4) % Baso % (Auto) 0.3 (0-2) % Lymph # (Auto) 1.4 (1.2-4.9) X10*3/uL Marin # (Auto) 0.9 (0.1-1.2) X10*3/uL Eos # (Auto) 0.1 (0.0-0.4) X10*3/uL Baso # (Auto) 0.0 (0.0-0.2) X10*3/uL Abs Immat Gran (auto) 0.03 (0.00-0.03) X10*3/uL Absolute Neuts (auto) 8.1 (2.0-8.3) x10*3/uL Absolute Nucleated RBC 0.000 (0.0-0.012) X10*3/uL Nucleated RBC % (auto) 0.0 (0.0-0.2) /100WBC Sodium 139 (135-145) mmol/L Potassium 3.8 D (3.3-5.1) mmol/L Chloride 106 (96-108) mmol/L Carbon Dioxide 25 (22-29) mmol/L Anion Gap 12 (12-20) BUN 9 (9-16) mg/dL Creatinine 0.92 (0.5-1.4) mg/dL Estim Creat Clear Calc 94.5 Estimated GFR > 60 Random Glucose 97 (60-115) mg/dL Calcium 9.6 (8.4-10.2) mg/dL Magnesium 2.0 (1.6-2.6) mg/dL Total Bilirubin 1.4 H (0.0-1.0) mg/dL AST 554 H (5-37) U/L ALT 1073 H (0-40) U/L Alkaline Phosphatase 64 (39-117) U/L Ammonia (13-55) umol/L Total Protein 7.2 (6.5-8.0) g/dL Albumin 4.1 (3.5-5.0) g/dL Ethyl Alcohol mg/dL COVID-19 ([facility]) Negative (Negative) COVID-19 Clin Com See Note 12/02/22 12/02/22 Range/Units 11:11 11:11 WBC (4.8-10.8) X10*3/uL RBC (4.60-5.80) X10*6/uL Hgb (14.0-18.0) g/dl Hct (42.0-52.0) % MCV (80.0-98.0) fL MCH (27.0-33.0) pg MCHC (31.0-36.0) g/dl RDW (11.0-16.0) % Plt Count (160-400) X10*3/uL MPV (9.4-12.4) fL Immature Gran % (Auto) (0.0-0.4) % Neut % (Auto) (45-73) % Lymph % (Auto) (20-40) % Marin % (Auto) (2-11) % Eos % (Auto) (0-4) % Baso % (Auto) (0-2) % Lymph # (Auto) (1.2-4.9) X10*3/uL Marin # (Auto) (0.1-1.2) X10*3/uL Eos # (Auto) (0.0-0.4) X10*3/uL Baso # (Auto) (0.0-0.2) X10*3/uL Abs Immat Gran (auto) (0.00-0.03) X10*3/uL Absolute Neuts (auto) (2.0-8.3) x10*3/uL Absolute Nucleated RBC (0.0-0.012) X10*3/uL Nucleated RBC % (auto) (0.0-0.2) /100WBC Sodium (135-145) mmol/L Potassium (3.3-5.1) mmol/L Chloride (96-108) mmol/L Carbon Dioxide (22-29) mmol/L Anion Gap (12-20) BUN (9-16) mg/dL Creatinine (0.5-1.4) mg/dL Estim Creat Clear Calc Estimated GFR Random Glucose (60-115) mg/dL Calcium (8.4-10.2) mg/dL Magnesium (1.6-2.6) mg/dL Total Bilirubin (0.0-1.0) mg/dL AST (5-37) U/L ALT (0-40) U/L Alkaline Phosphatase (39-117) U/L Ammonia 31 (13-55) umol/L Total Protein (6.5-8.0) g/dL Albumin (3.5-5.0) g/dL Ethyl Alcohol < 10 mg/dL COVID-19 ([facility]ALDO) (Negative) COVID-19 Clin Com Independent Interpretation I performed an independent interpretation of an: Ultrasound Interpretation: My interpretation is in agreement with the radiologist's impression of this imaging study. EXAMINATION: US ABDOMEN LIMITED CLINICAL INFORMATION: Right upper quadrant pain. Markedly elevated LFTs. COMPARISON: None available. TECHNIQUE: Real-time imaging of the right upper quadrant abdominal viscera. FINDINGS: PANCREAS: The pancreas appears homogeneous in echo texture with normal caliber pancreatic duct in the body and the tail of pancreas. The proximal end duct is probably normal. LIVER: Normal. The liver is normal in size. The liver contour is normal. Parenchymal echogenicity is normal. No focal hepatic lesion. There is no intrahepatic biliary duct dilatation seen. GALLBLADDER: The gallbladder isn't contracted with thickened gallbladder wall and thick septations within. No echogenic stones seen. COMMON BILE DUCT: The distal CBD is dilated measuring 1.5 seen at the level of pancreatic head but no echogenic stones or mass seen. Recommend CT abdomen. RIGHT KIDNEY: Normal. No hydronephrosis. No renal calculi or focal parenchymal lesions. The kidney measures 10.9 cm in maximum dimension. FREE FLUID: None. US/US abdomen limited IMPRESSION: Dilated distal CBD at the level of pancreatic head. No echogenic stone or mass seen within the CBD. Recommend CT abdomen with and without contrast evaluate any pancreatic head or intraductal lesion. ? The gallbladder is contracted with diffuse wall thickening and thick-walled septation but no echogenic stone. ? Visualized liver, pancreas and right kidney is unremarkable. Dictated By: Checo King MD Signed By: Electronically signed by Checo King MD 12/02/22 1248 Radiology Impression Discussion of test interpretation with radiology: I have reviewed the radiologist's reading. Independent Historian Clinical information obtained from an independent historian. History obtained from or confirmed by: EMS (EMS provided additional history and confirmed the history provided by the patient. ) External Record Review External record reviewed: Other (patient's previous ED visits were reviewed.) Critical Care Time Critical Care Time Critical Care Time: Yes Total Critical Care Time: 30 Attestation: I spent 30 minutes of Critical Care Time with this patient. This does not include time spent on separately reported billable procedures. Discharge Plan Discharge Clinical Impression: Abdominal pain, Elevated LFTs, Nausea & vomiting Patient Disposition: Still a Patient Prescriptions: No Action amlodipine 5 mg tablet 5 mg PO DAILY Qty: 30 1RF baclofen 10 mg tablet 10 mg PO TID Qty: 90 0RF gabapentin 300 mg capsule 300 mg PO BID Qty: 60 0RF
[2022-12-02 09:40] VITALS: BP 148/88; PULSE 94; O2SAT 100
[2022-12-02 09:41] VITALS: BP 130/85; PULSE 89; RESP 16; TEMP 37.1; O2SAT 98
[2022-12-02 09:42] VITALS: BP 130/85; PULSE 89; RESP 18; TEMP 37.1; O2SAT 98; BMI 22.7
--- NOTE | 2022-12-02 10:02 | PC.NURSE ---
Alert and oriented, arrived via ems complaining of abdominal pain with n/v/d x 3 days. denies chest pain or sob. States last watery BM was just prior to arrival. left side of abdomen tender to touch.
--- NOTE | 2022-12-02 11:48 | PC.NURSE ---
Alert and oriented. Bedside ultrasound being performed. Patient reports feeling better after zofran and iv fluids. Resting comfortably in bed
[2022-12-02 12:05] VITALS: BP 134/80; PULSE 81; RESP 16; TEMP 37; O2SAT 98
--- NOTE | 2022-12-02 15:00 | PC.NURSE ---
this nurse took over care of patient at 1500, upon obtaining report pt was standing at the door yelling and swearing at this nurse to take out his IV that he was leaving, security was called and was at bedside and pt began swearing and yelling at them as well, this nurse attempted to calm patient without positive results, pt angry that he is still waiting for test results, pt also going back and forth stating hes leaving and then stating that staff is prejudice and we dont want to take care of him- after the patient threatened to physically harm this nurse, this nurse left the room to allow security to deal with the patient. provider was at bedside speaking with patient as well- patient was angry and yelling at the provider. Additional nursing staff went into the room to administer medications. Patients call benedict is within reach- will continue to monitor.
[2022-12-02 16:00] VITALS: RESP 18
--- NOTE | 2022-12-02 16:39 | PC.NURSE ---
pt currently sleeping
--- NOTE | 2022-12-02 17:28 | PC.NURSE ---
pt has rang the call benedict wanting his test results, test results are now back- provider has been notified as well as charge nurse that these results are now back, provider to see patient when she has a moment to do so.
--- NOTE | 2022-12-02 17:38 | PC.NURSE ---
Patient rang eleno benedict, upon this RN entering room patient agitated stating that he has no idea what is going on. When asked to explain what he is talking about patient stated that he was told that he needed surgery on his gall bladder and liver. RN spoke with provider who stated she had just spoken to patient about CT results and that patient could be offered anti anxiety medication. This writer technical publications returned to speak with patient about plan of care going forward and offered patient medication to help with anxiety. Patient declined medication for anxiety and was calm until reminded we still needed his urine to test for infection. Patient agitated stating he already told staff he did not need to go to the bathroom right now. yelling out that staff were racist and were refusing him the emergent surgery he needed. Able to be re-directed only for short periods of time.
--- NOTE | 2022-12-02 17:56 | PC.NURSE ---
Late entry for 1430- Patient rang call marichuy upon this RN entering room patient agitated stating that he has no idea what is going on. When asked to explain what he is talking about patient stated that he was told that he needed surgery on his gall bladder and liver. RN spoke with provider who stated she had just spoken to patient about CT results and that patient could be offered anti anxiety medication. This copywriter returned to speak with patient about plan of care going forward and offered patient medication to help with anxiety. Patient declined medication for anxiety and was calm until reminded we still needed his urine to test for infection. Patient agitated stating he already told staff he did not need to go to the bathroom right now. yelling out that staff were racist and were refusing him the emergent surgery he needed. Able to be re-directed only for short periods of time.
--- NOTE | 2022-12-02 18:27 | PHA.MEDREC ---
Pharmacy Consult ? Medication Reconciliation Pharmacy has completed the medication reconciliation.
--- NOTE | 2022-12-02 19:00 | PC.NURSE ---
(late entry) security called as patient has been verbally abusive and threatening staff, pt stating he is not staying in this hospital because we wont feed him as he hasnt eaten in 5 days, hospitalist have been at bedside attempting to explain to patient about course of care- hospitalist came to this nurse stating he will be non compliant with an admission- ed provider notified of this as well. patient verbally abusive to hospitalist and ed provider as well. security and additional staff attempting to de-escilate patient which did not work, pt requested iv to be removed, pt refused admission and discharged.
[2022-12-03 08:25] LABS: HBS Num1 348.51 mIU/mL (0-7.99); HBc Num1 7.25 S/CO (0.00-0.79); HBsAGNum1 0.56 S/CO (0.00-0.99); Hepatitis A Antibody IgM 0.22 Index (0-0.79); Hepatitis B Surface Antigen Negative (Negative); ~HepC Num1 9.87 S/CO (0.00-0.79); ~Hepatitis A Antibody IgM Nonreactive (Nonreactive); ~Hepatitis B Surface Antibody REACTIVE (Nonreactive); ~Hepatitis C Antibody Reactive (Nonreactive)
[2022-12-05 10:00] LABS: HBc Num2 7.27 S/CO; HBc Num3 7.03 S/CO; Hepatitis B Core Antibody Reactive (Nonreactive)
== END 2022-12-03 02:26 | disposition left against medical advice (07) ==
PROVIDERS: Physician Assistant Medical; Emergency Provider Emergency Medicine Emergency Medical Services
DX: R10.9 Unspecified abdominal pain (principal); R79.89 Other specified abnormal findings of blood chemistry; R11.2 Nausea with vomiting, unspecified; Z20.822 Contact with and (suspected) exposure to COVID-19; E78.5 Hyperlipidemia, unspecified; I10 Essential (primary) hypertension; F17.210 Nicotine dependence, cigarettes, uncomplicated; F12.90 Cannabis use, unspecified, uncomplicated; Z79.899 Other long term (current) drug therapy
CPT/HCPCS: 36415; 74170; 76705; 80053; 80307; 82140; 82550; 83735; 85025; 86704; 86706; 86709; 86803; 87340; 87635; 96361; 96374; 96375; 99284; J2060; J2405; Q9967

== ENCOUNTER 2022-12-06 10:44 | Observation (INO) | payer MEDICAID, SELFPAY ==
--- NOTE | ~2022-12-06 | MR_ITS ---
EXAMINATION: MR ABDOMEN WITHOUT CONTRAST CLINICAL INFORMATION: Abnormal CBD findings COMPARISON: CT scan and ultrasound TECHNIQUE: Multiple routine MRI sequences through the abdomen were attempted however the patient was claustrophobic and refused to complete the examination. Heavily T2-weighted images were performed utilizing a dedicated MRCP technique. Contrast was not utilized for the study. FINDINGS: Lung bases: The visualized lung bases are unremarkable. Liver: The liver is normal in size, shape, and signal. A few tiny T2 bright probable hepatic cysts are seen scattered throughout the liver parenchyma No suspicious focal hepatic lesions seen on this noncontrast study. Biliary system: The common bile duct is normal in course but prominent in caliber measuring up to 1 cm with no evidence for intrahepatic biliary ductal dilatation. There is focal tapering in the region the pancreatic head. I not appreciate a discrete mass in this location. No intraluminal filling defects are appreciated. Gallbladder: Gallbladder is unremarkable. No suspicious gallstones or filling defects. No gallbladder wall thickening or pericholecystic inflammatory changes. Pancreas: Pancreas is homogeneous in signal. No pancreatic ductal dilatation or obstruction. No peripancreatic inflammatory changes or fluid. Spleen: Unremarkable Adrenals: Unremarkable Kidneys: Kidneys are normal in size, shape, and signal. No suspicious renal mass lesion seen. No hydronephrosis or perinephric edema. Other: None MR/MR MRCP IMPRESSION: Limited incomplete study. Patient was unable to continue the examination due to underlying claustrophobia. On images obtained, the common bile duct is prominent measuring up to 1 cm maximal diameter tapering in the region the pancreatic head. No obvious intraluminal filling defects seen.
[2022-12-06 11:07] VITALS: BP 171/84; PULSE 68; RESP 19; TEMP 36.6; O2SAT 98; BMI 22.9
--- NOTE | 2022-12-06 11:07 | ED_ITS ---
HPI - General Adult General Chief complaint: Abdominal Pain Stated complaint: Upper left abdominal pain Time Seen by Provider: 12/06/22 11:15 Source: patient Mode of arrival: ambulatory Limitations: no limitations History of Present Illness HPI narrative: 62-year-old male with history of alcohol abuse sober for 1 year, bipolar disorder, schizophrenia presented to the emergency department on December 02 with a 3 day history of a vague abdominal pain, nausea, vomiting diarrhea. He had reported that he was unable to keep down solids or liquids during that period time there are no home remedies either. Patient was reportedly drinking a lot a water. There are no sick contacts prior to his evaluation. Patient had imaging of the abdomen and pelvis with a CT scan. It identified dilated appearance of the common bile duct measuring approximately 1 cm with no filling defect. There is no intrahepatic biliary ductal dilation. The pancreas appeared normal. There was some mild gallbladder wall thickening but no inflammation and inflammatory changes. GI had been contacted who recommended admission for an MRCP with and without contrast due to continued abdominal pain. Upon evaluation by the hospitalist, patient did become quite upset and belligerent. He was upset they was unable to talk to take any oral intake in. He decided to leave against medical advice. Patient returns today for re-evaluation. Since his visit to the emergency department, patient has been able to tolerate oral intake. However, he does continue have nausea, vomiting and diarrhea. He reports the symptoms have improved somewhat. He denies any fevers or chills. Denies any blood in his stool or vomitus. Related Data Home Medications Medication Instructions Recorded Confirmed No Known Home Meds 12/02/22 12/02/22 Allergies Allergy/AdvReac Type Severity Reaction Status Date / Time No Known Allergies Allergy Verified 12/06/22 11:06 Review of Systems Review of Systems: CONSTITUTIONAL: Denies weight loss, fever and chills. HEENT: Denies changes in vision and hearing. RESPIRATORY: Denies SOB and cough. CV: Denies palpitations no CP. GI: + abdominal pain, nausea, vomiting and diarrhea. : Denies dysuria and urinary frequency. MSK: Denies myalgia and joint pain. SKIN: Denies rash and pruritus. NEUROLOGICAL: Denies headache and syncope. PSYCHIATRIC: Denies recent changes in mood. Denies anxiety and depression. All other ROS are negative unless in HPI PMFSH Past Medical History Medical History High cholesterol HTN (hypertension) Social History Social History Alcohol intake: never Smoked in Last 30 Days: Yes Use of substances other than those prescribed or required for medical reasons: Yes Substance Use Type: Marijuana Advance Directives: No Advance Directives Information Provided: Yes Physical Exam ED Vital Signs: Vital Signs - 24 hr 12/06/22 11:07 12/06/22 14:14 Temperature 98 F 98.2 F Pulse Rate 68 130 H Respiratory Rate 19 18 Blood Pressure 171/84 H 165/100 H Pulse Oximetry 98 98 Oxygen Delivery Method Room Air BMI result Body Mass Index 22.9 GEN: Well developed, no acute distress, alert, oriented HEENT: Normocephalic, atraumatic, normal external ears, nose appears normal, no oropharyngeal edema or exudates Eyes: Normal to appearance Neck: Supple, no lymphadenopathy Respiratory: Talks in complete sentences, no respiratory distress, clear to auscultation bilaterally Cardiovascular: Regular rate and rhythm, no murmurs rubs or gallops Abdomen: Soft, nontender, nondistended, no guarding, no rebound Back: No CVA tenderness Extremities: No clubbing cyanosis or edema Neurologic: No focal neurologic deficits, cranial nerves 2-12 intact, strength is 5/5 bilaterally Skin: No rash Course Course Course Narrative: This is an RME: Additional HPI, ROS, PE not included below will be deferred to primary provider. Patient re presents second time in one week for abdominal pain. Was told he needed hospital admission on Saturday 12/02. Patient left AMA. Please refer to previous chart. Today reporting nausea, vomiting, diffuse abdominal pain. Plan: labs Reevaluation(s) Reevaluation #1: Repeat labs demonstrate a CBC that is stable with no acute white blood cell count elevation, bandemia. He did test positive for marijuana and cocaine. I reviewed his imaging studies from his most recent visit to the emergency department including CT scan: CT/CT abdomen wo/w IV con IMPRESSION: 1.? Dilated appearance of the common bile duct measuring 1 cm. No ductal filling defect. No intrahepatic biliary ductal dilatation. 2.? Normal appearance of the pancreas. 3.? Suggestion of mild gallbladder wall thickening. No adjacent inflammation. ? Fleischner guidelines were followed. Ultrasound: US/US abdomen limited IMPRESSION: Dilated distal CBD at the level of pancreatic head. No echogenic stone or mass seen within the CBD. Recommend CT abdomen with and without contrast evaluate any pancreatic head or intraductal lesion. ? The gallbladder is contracted with diffuse wall thickening and thick-walled septation but no echogenic stone. ? Visualized liver, pancreas and right kidney is unremarkable. Dictated By: Checo King MD Signed By: <Electronically signed by Checo King MD in OV> 12/02/22 1248 Reevaluation #2: Patient is agreeable to hospitalization for an MRCP. He is aware that he needs to stay nor to have this procedure done in order to determine the etiology of this abnormality and if this is contributing to his current symptoms. I have ordered the patient diet at this time but have made him NPO after midnight. I discussed with him appropriate behavior while admitted to the hospital. All questions were addressed with the patient. Time: 15:49 Consultations Consultation #1: Dr. Diego - it is recommended patient proceed with MRCP. Dr. Diego believe repeat ultrasound or CT scan would be unhelpful and providing an etiology for the CBD dilatation even though the labs have been improving. Discussed this conversation with the patient Time: 14:14 Medical Decision Making Medical Decision Making [facility] Narrative: 62-year-old male presents with abdominal pain. Abdominal pain has been intermittent for about 6-7 days. He has had nausea, vomiting and diarrhea. He was in the emergency department on December 02. He had dilated common bile duct, abnormal LFTs. He presents for re-evaluation today. Patient is frustrated this moment because he wishes to eat however he is aware that any ingestion of food could affect any potential studies we might need to do. At this point it is appropriate to repeat his liver function tests which were abnormal. Would c onsider MRCP which was the recommendation previously. Will contact gastroenterology following workup. Differential diagnosis includes biliary colic, choledocholithiasis, mass effect, abnormal imaging findings. Differential Diagnosis Differential Diagnoses: The differential diagnosis associated with the presentation includes (See above) CBD dilation Admission/Observation Consideration of admission/observation: Escalation of care including admission/observation considered Consult Healthcare Provider Management of the patient was discussed with: Hospitalist and Assembler Lay Ups Lab Data [facility] Lab Attestation statement: I reviewed the patient's lab results. 12/06/22 11:18 12/06/22 11:18 Labs: Lab Results 12/06/22 12/06/22 Range/Units 11:18 11:18 WBC 7.8 (4.8-10.8) X10*3/uL RBC 4.25 L (4.60-5.80) X10*6/uL Hgb 12.8 L (14.0-18.0) g/dl Hct 37.1 L (42.0-52.0) % MCV 87.3 (80.0-98.0) fL MCH 30.1 (27.0-33.0) pg MCHC 34.5 (31.0-36.0) g/dl RDW 12.4 (11.0-16.0) % Plt Count 206 (160-400) X10*3/uL MPV 9.8 (9.4-12.4) fL Immature Gran % (Auto) 0.9 H (0.0-0.4) % Neut % (Auto) 66.7 (45-73) % Lymph % (Auto) 22.4 (20-40) % [place] % (Auto) 7.8 (2-11) % Eos % (Auto) 1.7 (0-4) % Baso % (Auto) 0.5 (0-2) % Lymph # (Auto) 1.8 (1.2-4.9) X10*3/uL [place] # (Auto) 0.6 (0.1-1.2) X10*3/uL Eos # (Auto) 0.1 (0.0-0.4) X10*3/uL Baso # (Auto) 0.0 (0.0-0.2) X10*3/uL Abs Immat Gran (auto) 0.07 H (0.00-0.03) X10*3/uL Absolute Neuts (auto) 5.2 (2.0-8.3) x10*3/uL Absolute Nucleated RBC 0.000 (0.0-0.012) X10*3/uL Nucleated RBC % (auto) 0.0 (0.0-0.2) /100WBC Sodium 145 (135-145) mmol/L Potassium 4.5 (3.3-5.1) mmol/L Chloride 111 H (96-108) mmol/L Carbon Dioxide 27 (22-29) mmol/L Anion Gap 12 (12-20) BUN 11 (9-16) mg/dL Creatinine 0.77 (0.5-1.4) mg/dL Estim Creat Clear Calc 117.2 Estimated GFR > 60 Random Glucose 87 (60-115) mg/dL Calcium 9.6 (8.4-10.2) mg/dL Magnesium 1.9 (1.6-2.6) mg/dL Total Bilirubin 0.4 (0.0-1.0) mg/dL AST 17 (5-37) U/L ALT 188 H (0-40) U/L Alkaline Phosphatase 57 (39-117) U/L Total Protein 6.7 (6.5-8.0) g/dL Albumin 3.9 (3.5-5.0) g/dL Lipase 30 (8-78) U/L LFTs improved from previous studies Radiology Impression Radiologist Impression: Reviewed previous imaging studies External Record Review Previous emergency department reports Tests considered The following testing was considered but not selected: MRCP, repeat ultrasound Prescription Management I considered prescription management with: Pain Medication Discharge Plan Discharge Clinical Impression: Abdominal pain, Common bile duct dilatation Patient Disposition: Admitted As Inpatient Prescriptions: No Action No Known Home Meds
[2022-12-06 14:14] VITALS: BP 165/100; PULSE 130; RESP 18; TEMP 36.8; O2SAT 98
--- NOTE | 2022-12-06 14:18 | PC.NURSE ---
Alert and oriented, patient states that he was here a week ago and has not gotten better. States that he has been having diarrhea and unable to keep any food down. VSS, rates abdominal yoan 3/10
--- NOTE | 2022-12-06 16:18 | P.HPHOSP_ITS ---
History of Present Illness Date of Service: 12/06/22 Chief Complaint: Abdominal pain 62-year-old man presented to the ER with complaints of abdominal pain and intractable nausea and vomiting that started about a week ago. He initially presented to the emergency department on December 02 with the same symptoms. At that time he was not able to keep any food down and had also episodes of diarrhea. He had an abdominal and pelvic CT scan which showed a dilated appearance of the common bile duct and his LFTs were significantly elevated. The plan was to perform an MRCP however patient decided to leave against medical advice after he was told that he could not have any food or drink prior to the test. He now returns today with same symptoms however his liver enzymes have a come down and actually all of his other labs are within acceptable limits other than the toxicology report which shows positive cocaine and marijuana. His blood pressure is quite elevated with highest reading of 165/100. The ER provider spoke with the dock or pier laborer who recommended patient be admitted for an MRCP. Patient is in agreement and with placed on observation for abdominal pain and intractable nausea and vomiting. Review of Systems Review of Systems: Denies any recent fever chills or decrease in appetite respiratory denies any shortness of breath coverage production cardiovascular denies chest pain gastrointestinal mildly tender abdomen genitourinary denies any dysuria frequency or hematuria musculoskeletal denies any joint pain or swelling neuropsych denies any weakness or seizures all other systems reviewed are negative REPLACED BY [facility] Medical History (Updated 12/06/22 @ 16:22 by Arlen Zhang NP) Cardiac arrhythmia HTN (hypertension) Family History (Updated 12/06/22 @ 16:21 by Arlen Zhang NP) Mother Diabetes mellitus Surgical History (Updated 12/06/22 @ 16:22 by Arlen Zhang NP) History of appendectomy Social History Alcohol intake: never Smoked in Last 30 Days: Yes Use of substances other than those prescribed or required for medical reasons: Yes Substance Use Type: Marijuana Advance Directives: No Advance Directives Information Provided: Yes Meds Allergies Allergy/AdvReac Type Severity Reaction Status Date / Time No Known Allergies Allergy Verified 12/06/22 11:06 Active Medications: Current Medications Acetaminophen (Acetaminophen 325 Mg Tablet) 650 mg PO Q6H PRN PRN Reason: Pain, Mild (Pain Scale 1-3) Heparin Sodium (Porcine) (Heparin Sodium,Porcine 5,000 Unit/Ml Vial) 5,000 unit SUBCUT Q12H PENDING SALE TO [facility] Ondansetron HCl (Ondansetron Hcl 4 Mg/2 Ml Vial) 4 mg IVPUSH Q8H PRN PRN Reason: Nausea and Vomiting Sodium Chloride (0.9 % Sodium Chloride Flush 3 Ml Syringe) 3 ml IVFLUSH QSHIFT PENDING SALE TO [facility] Home Medications Medication Instructions Recorded Confirmed Last Taken Type No Known Home Meds 12/02/22 12/02/22 Unknown History Physical Exam Vital Signs and Narrative: Vital Signs: Last Vital Signs Temp 98.2 F 12/06/22 14:14 Pulse 130 H 12/06/22 14:14 Resp 18 12/06/22 14:14 BP 165/100 H 12/06/22 14:14 Pulse Ox 98 12/06/22 14:14 O2 Del Method Room Air 12/06/22 14:14 BMI result Body Mass Index 22.9 Results Labs 12/06/22 11:18 12/06/22 11:18 Labs: Laboratory Results - last 24 hr 12/06/22 12/06/22 11:18 11:18 MCV 87.3 MCH 30.1 MCHC 34.5 RDW 12.4 Plt Count 206 MPV 9.8 Immature Gran % (Auto) 0.9 H Neut % (Auto) 66.7 Lymph % (Auto) 22.4 [place] % (Auto) 7.8 Eos % (Auto) 1.7 Baso % (Auto) 0.5 Lymph # (Auto) 1.8 [place] # (Auto) 0.6 Eos # (Auto) 0.1 Baso # (Auto) 0.0 Abs Immat Gran (auto) 0.07 H Absolute Neuts (auto) 5.2 Absolute Nucleated RBC 0.000 Nucleated RBC % (auto) 0.0 Anion Gap 12 Estim Creat Clear Calc 117.2 Estimated GFR > 60 Random Glucose 87 Calcium 9.6 Magnesium 1.9 Total Bilirubin 0.4 AST 17 ALT 188 H Alkaline Phosphatase 57 Total Protein 6.7 Albumin 3.9 Lipase 30 Assessment and Plan (1) Abdominal pain: Status: Acute Plan 62-year-old man presenting with abdominal pain and nausea present for 1 week with elevated LFTs. Admitted for intractable abdominal pain and nausea. Abdominal pain and nausea, acute Possible choledocholithiasis in light of abdominal CT showing dilated common bile duct and elevated LFTs Plan for MRCP in the morning GI consultation Pain management NPO after midnight Elevated blood pressure readings Patient denies history of hypertension Started on lisinopril 5 mg daily Normocytic anemia No signs of bleeding Follow CBC Drug abuse Cocaine and marijuana positive No sign of withdrawal at this time DVT prophylaxis with heparin Full code Observation Time Spent With Patient Time: Total time managing care of this patient today ____ minutes. Quality Stroke Does the patient have a stroke diagnosis?: No VTE Prior VTE?: No VTE Risk Level:: Medical - moderate - high VTE Device Contraindication: Treatment Not Indicated VTE Drug Contraindication: N/A - Med Ordered
[2022-12-06] MEDS: lisinopriL 5 MG TABLET PO (16:53)
[2022-12-06 16:54] VITALS: BP 161/107; PULSE 75; RESP 16; O2SAT 99
--- NOTE | 2022-12-06 16:55 | PC.NURSE ---
Pt appears comfortable. Plan for admission with MRCP tomorrow, NPO after midnight. Pt agreeable with plan at this time. Medicated as charted. Denies pain. Ambulatory to bathroom
--- NOTE | 2022-12-06 17:02 | PHA.MEDREC ---
Pharmacy Consult ? Medication Reconciliation Pharmacy has completed the medication reconciliation. Patient reports no medications at home. Delia Bales, DelorisD
--- NOTE | 2022-12-06 18:40 | PC.NURSE ---
attempted to call report but nurse to call back
--- NOTE | 2022-12-06 19:03 | PC.NURSE ---
Assumed care of pt. Pt lying on stretcher, IV established by prior shift. Pt endorsing no pain at this time, VSS, WCTM until report can be called.
[2022-12-06 19:04] VITALS: BP 147/89; PULSE 72; RESP 18; O2SAT 98
[2022-12-06 19:55] VITALS: BMI 22.2
[2022-12-06 20:00] VITALS: BP 158/79; PULSE 70; RESP 16; TEMP 36.9; O2SAT 99
[2022-12-07 03:03] VITALS: BP 160/86; PULSE 63; RESP 14; TEMP 36.3; O2SAT 100
[2022-12-07 05:17] LABS: MANUAL DIFF FLAG NO
[2022-12-07 05:21] LABS: Basophils Absolute Auto 0.1 X10*3/uL (0.0-0.2); Basophils Percent Auto 0.6 % (0-2); Eosinophils Absolute Auto 0.2 X10*3/uL (0.0-0.4); Eosinophils Percent Auto 2.7 % (0-4); Hematocrit 35.8 % (42.0-52.0); Hemoglobin 12.2 g/dl (14.0-18.0); Imm Gran Abs Auto 0.09 X10*3/uL (0.00-0.03); Imm Gran Pct Auto 1.1 % (0.0-0.4); Lymphocytes Absolute Auto 2.4 X10*3/uL (1.2-4.9); Lymphocytes Percent Auto 29.5 % (20-40); Mean Corpuscular HGB Conc 34.1 g/dl (31.0-36.0); Mean Corpuscular Hemoglobin 29.6 pg (27.0-33.0); Mean Corpuscular Volume 86.9 fL (80.0-98.0); Mean Platelet Volume 10.5 fL (9.4-12.4); Monocytes Absolute Auto 0.8 X10*3/uL (0.1-1.2); Monocytes Percent Auto 9.7 % (2-11); Neutrophils Absolute Auto 4.6 x10*3/uL (2.0-8.3); Neutrophils Percent Auto 56.4 % (45-73); Platelet Count 205 X10*3/uL (160-400); Red Blood Count 4.12 X10*6/uL (4.60-5.80); Red Cell Distribution Width 12.2 % (11.0-16.0); White Blood Count 8.1 X10*3/uL (4.8-10.8)
[2022-12-07 05:36] LABS: Anion Gap 13 (12-20); Blood Urea Nitrogen 16 mg/dL (9-16); Calcium 9.3 mg/dL (8.4-10.2); Carbon Dioxide 25 mmol/L (22-29); Chloride 106 mmol/L (96-108); Creatinine Clr Calc Pharmacy 103.7; Estimated Glomerular Filt Rate > 60; Glucose Random 86 mg/dL (60-115); Potassium 3.8 mmol/L (3.3-5.1); Sodium 140 mmol/L (135-145)
[2022-12-07 05:40] LABS: Alanine Aminotransferase 129 U/L (0-40); Albumin Level 3.4 g/dL (3.5-5.0); Alkaline Phosphatase 50 U/L (39-117); Aspartate Amino Transferase 14 U/L (5-37); Bilirubin Direct 0.1 mg/dL (0.0-0.5); Bilirubin Total 0.3 mg/dL (0.0-1.0); Cholesterol 146 mg/dL; HDL Cholesterol 45 mg/dL; LDL Cholesterol Calculated 89 mg/dl; Magnesium 1.8 mg/dL (1.6-2.6); Total Protein 5.9 g/dL (6.5-8.0); Triglycerides 62 mg/dL
[2022-12-07 07:16] LABS: Estimated Average Glucose 91 mg/dL; Hemoglobin A1c % 4.8 %
[2022-12-07 07:26] VITALS: BP 166/88; PULSE 64; RESP 16; TEMP 36.3; O2SAT 96
[2022-12-07 07:44] LABS: Appearance Urine Clear; Color Urine Yellow; Glucose Urine UA Negative (Negative); Leukocyte Esterase Urine Negative (Negative); Nitrite Urine Negative (Negative); Urine Blood Negative (Negative); Urine Ketones Negative (Negative); Urine Protein Negative (Neg-Trace)
[2022-12-07] MEDS: lisinopriL 5 MG TABLET PO (08:27)
[2022-12-07 09:21] VITALS: BP 166/88; PULSE 64; O2SAT 96
[2022-12-07] MEDS: Nicotine 21 MG PATCH.TD24 TRANSDERMA (09:40)
--- NOTE | 2022-12-07 10:17 | P.BOP_ITS ---
Brief Operative Note Date of Service: 12/07/22 Pre-op diagnosis: screening Post-op diagnosis: same Surgeon: Tushar Diego Anesthesia: MAC Was an Demand Equipment Repairer used for this Procedure?: No Estimated blood loss (mL): 0 Pathology: other Condition: stable Disposition: PACU
--- NOTE | 2022-12-07 10:21 | PM.DS ---
DS: Providers Provider Date of Service: 12/07/22 Date of admission: 12/06/22 16:14 Primary care physician: Unknown Physician Consults: 12/06/22 16:15 Consult to Gastroenterology Routine Consulting Provider: Tushar Diego Reason for consultation: abd pain 12/07/22 07:55 Consult to Infectious Diseases [place]ine [place]ing [place] [facility] [place] [facility] [place] Reason for consultation: Hep c pos DS: Diagnosis Discharge Diagnosis (1) Abdominal pain: Status: Acute DS: Summary Hospital Course Hospital Course: 62-year-old man presented to the ER with complaints of abdominal pain and intractable nausea and vomiting that started about a week ago.? He initially presented to the emergency department on December 02 with the same symptoms.? At that time he was not able to keep any food down and had also episodes of diarrhea.? He had an abdominal and pelvic CT scan which showed a dilated appearance of the common bile duct and his LFTs were significantly elevated.? The plan was to perform an MRCP however patient decided to leave against medical advice after he was told that he could not have any food or drink prior to the test.? He now returns today with same symptoms however his liver enzymes have a come down and actually all of his other labs are within acceptable limits other than the toxicology report which shows positive cocaine and marijuana.? His blood pressure is quite elevated with highest reading of 165/100.? The ER provider spoke with the political consultant who recommended patient be admitted for an MRCP.? Patient is in agreement and with placed on observation for abdominal pain and intractable nausea and vomiting. 62-year-old man treated for abdominal pain, nausea and diarrhea. Suspected choledocholithiasis. The patient was not able to fully complete the MRCP due to claustrophobia however according to the political consultant images that were received did not show a retained stone. From 12/02 2022 to today his LFTs had significantly trended down. There may be multiple reasons for this including of drug use, hepatitis-C, passed stone. It appears that the patient likely has a chronic inflammation of the CBD. He was hepatitis-C antibody positive in reports that he had been treated for hepatitis-C in the past. His antibodies are again positive and he was informed to follow-up with either his previous provider for the hepatitis-C treatment or our infectious disease doctor. He did have some loose stools, no recent history of antibiotics other than just on admission. He can use Imodium as needed, check LFTs in 1 week in follow-up with primary care provider. Patient also had elevated blood pressure readings. He denied history of hypertension but lisinopril 5 mg daily was initiated she continue this outpatient in if able monitor his blood pressures at home and document to share with his primary care provider. Normocytic anemia. Chronic. No signs of bleeding Drug abuse. Cocaine and marijuana positive. No signs of withdrawal during admission Time Spent with Patient Time attestation: Total time managing care of this patient today ____ minutes. Discharge coordination time: Greater than 30 minutes Quality: Safe Use of Opioids Does Pt have an Active Cancer Diagnosis on the Problem List?: No Quality: Stroke Does the patient have a stroke diagnosis?: No Physical Exam Vital Signs: Vital Signs: Last Vital Signs Temp 97.4 F 12/07/22 07:26 Pulse 64 12/07/22 09:21 Resp 16 12/07/22 07:26 BP 166/88 H 12/07/22 09:21 Pulse Ox 96 12/07/22 09:21 O2 Del Method Room Air 12/07/22 07:26 BMI result Body Mass Index 22.2 Appearing in no acute distress head is normocephalic atraumatic eyes pupils are PERRLA sclera is anicteric mouth throat mucous membranes are intact and moist neck is supple no lymphadenopathy, no JVD noted lung sounds are clear to auscultation heart regular rate rhythm, clear S1, S2 positive bowel sounds, abdomen is soft, nontender neuro patient is alert x3, no focal deficits DS: Data Data Completed and Pending Labs on day of discharge: Laboratory Results - last 24 hr 12/06/22 12/06/22 12/07/22 11:18 11:18 04:50 WBC 7.8 8.1 RBC 4.25 L 4.12 L Hgb 12.8 L 12.2 L Hct 37.1 L 35.8 L MCV 87.3 86.9 MCH 30.1 29.6 MCHC 34.5 34.1 RDW 12.4 12.2 Plt Count 206 205 MPV 9.8 10.5 Immature Gran % (Auto) 0.9 H 1.1 H Neut % (Auto) 66.7 56.4 Lymph % (Auto) 22.4 29.5 [place] % (Auto) 7.8 9.7 Eos % (Auto) 1.7 2.7 Baso % (Auto) 0.5 0.6 Lymph # (Auto) 1.8 2.4 [place] # (Auto) 0.6 0.8 Eos # (Auto) 0.1 0.2 Baso # (Auto) 0.0 0.1 Abs Immat Gran (auto) 0.07 H 0.09 H Absolute Neuts (auto) 5.2 4.6 Absolute Nucleated RBC 0.000 0.000 Nucleated RBC % (auto) 0.0 0.0 Sodium 145 Potassium 4.5 Chloride 111 H Carbon Dioxide 27 Anion Gap 12 BUN 11 Creatinine 0.77 Estim Creat Clear Calc 117.2 Estimated GFR > 60 Random Glucose 87 Estimat Average Glucose Hemoglobin A1c % Calcium 9.6 Magnesium 1.9 Total Bilirubin 0.4 Direct Bilirubin AST 17 ALT 188 H Alkaline Phosphatase 57 Total Protein 6.7 Albumin 3.9 Triglycerides Cholesterol LDL Cholesterol, Calc HDL Cholesterol Lipase 30 Urine Color Urine Appearance Urine pH Ur Specific [place] Urine Protein Urine Glucose (UA) Urine Ketones Urine Blood Urine Nitrite Ur Leukocyte Esterase 12/07/22 12/07/22 12/07/22 04:50 04:50 04:50 WBC RBC Hgb Hct MCV MCH MCHC RDW Plt Count MPV Immature Gran % (Auto) Neut % (Auto) Lymph % (Auto) [place] % (Auto) Eos % (Auto) Baso % (Auto) Lymph # (Auto) [place] # (Auto) Eos # (Auto) Baso # (Auto) Abs Immat Gran (auto) Absolute Neuts (auto) Absolute Nucleated RBC Nucleated RBC % (auto) Sodium 140 Potassium 3.8 Chloride 106 Carbon Dioxide 25 Anion Gap 13 BUN 16 Creatinine 0.84 Estim Creat Clear Calc 103.7 Estimated GFR > 60 Random Glucose 86 Estimat Average Glucose 91 Hemoglobin A1c % 4.8 Calcium 9.3 Magnesium 1.8 Total Bilirubin 0.3 Direct Bilirubin 0.1 AST 14 ALT 129 H Alkaline Phosphatase 50 Total Protein 5.9 L Albumin 3.4 L Triglycerides 62 Cholesterol 146 LDL Cholesterol, Calc 89 HDL Cholesterol 45 Lipase Urine Color Urine Appearance Urine pH Ur Specific [place] Urine Protein Urine Glucose (UA) Urine Ketones Urine Blood Urine Nitrite Ur Leukocyte Esterase 12/07/22 Unknown WBC RBC Hgb Hct MCV MCH MCHC RDW Plt Count MPV Immature Gran % (Auto) Neut % (Auto) Lymph % (Auto) [place] % (Auto) Eos % (Auto) Baso % (Auto) Lymph # (Auto) [place] # (Auto) Eos # (Auto) Baso # (Auto) Abs Immat Gran (auto) Absolute Neuts (auto) Absolute Nucleated RBC Nucleated RBC % (auto) Sodium Potassium Chloride Carbon Dioxide Anion Gap BUN Creatinine Estim Creat Clear Calc Estimated GFR Random Glucose Estimat Average Glucose Hemoglobin A1c % Calcium Magnesium Total Bilirubin Direct Bilirubin AST ALT Alkaline Phosphatase Total Protein Albumin Triglycerides Cholesterol LDL Cholesterol, Calc HDL Cholesterol Lipase Urine Color Yellow Urine Appearance Clear Urine pH 7.0 Ur Specific [place] 1.010 Urine Protein Negative Urine Glucose (UA) Negative Urine Ketones Negative Urine Blood Negative Urine Nitrite Negative Ur Leukocyte Esterase Negative Discharge Plan Discharge Anticipated Discharge Date/Time: 12/07/22 14:37 Patient Disposition: Home, Self-Care Discharge Diagnosis: Abdominal pain Hypertension Referrals: Ryanne Ly MD [Physician] - 1 Week Discharge Medications: New lisinopril 5 mg tablet 5 mg PO DAILY Qty: 30 0RF loperamide [Imodium A-D] 2 mg capsule 2 mg PO Q6H PRN (Reason: loose stool) Qty: 12 0RF Discharge Orders: Discharge Order (Routine); Ordered 12/07/22 Ordered By: Arlen Zhang Diet: Advance to usual diet Activity on Discharge: As tolerated Stand Alone Forms: Patient Portal Discharge page Other Ambulatory Orders: Liver Panel (Routine) Timeframe: 1 Week Facility: [facility] - Location: Laboratory Ordered By: Arlen Zhang Care Plan Goals: No further episodes of abdominal pain Health Concerns: Abdominal pain Hypertension Plan of Treatment: Follow-up with Infectious Disease provider Follow-up with primary care provider as needed Take all medications as prescribed Assessment: See discharge summary
--- NOTE | 2022-12-07 14:55 | MHC.CM.PN ---
Addendum entered by Rupali Ahumada 12/07/22 15:01: obs notice given to pt Original Note: pt dcd home no skilled services ordered by
--- NOTE | 2022-12-07 14:55 | PM.EVENT ---
Event Note Date of Service: 12/08/22 Event Note: GI consult dictated Time Spent With Patient Time: Total time managing care of this patient today ____ minutes.
--- NOTE | 2022-12-07 15:24 | MHC.CM.PN ---
Late charting. Met with pt this AM for CM assessment. The patient lives by himself. He is independent with all functional mobility. He does not have a PCP. The [facility] MD brochure was provided. DP home self care. Transport home via bus, pass provided.
--- NOTE | 2022-12-07 23:47 | CONS_ITS ---
DATE OF SERVICE: 12/07/2022 REASON FOR CONSULTATION: Abdominal pain with nausea, vomiting, and diarrhea. HISTORY OF PRESENT ILLNESS: The patient is a 62-year-old man, who was admitted to the hospital after presenting to the emergency room yesterday with complaints of abdominal pain, nausea, vomiting, and diarrhea. He was seen approximately 1 week ago with similar complaints and had laboratory tests showing elevation of liver function tests. He states he became ill the day before his ER visit, initially with nausea, vomiting, and diarrhea without any antecedent cause. He had some generalized abdominal pain as well. Evaluation in the emergency room showed elevation of liver function tests and imaging studies were obtained, which documented dilated common bile duct. He was going to be admitted for further evaluation including MRI imaging but left against medical advice. After he returned yesterday, blood work was done showing improvement in his liver function tests. He was admitted to the hospital and completed a partial MRI exam, which showed no evidence of gallstones in the gallbladder or common bile duct. Currently, he has been tolerating a diet and is able to keep liquids down, as well as solids. As part of his evaluation, he was found to have a positive hepatitis C antibody and states he was treated approximately 6 to 7 years ago with interferon and ribavirin with complete remission. He does have a history of substance abuse, but denies any drug use or alcohol use for about 1 year. PAST MEDICAL HISTORY: 1. Hypertension. 2. Hepatitis C. 3. Bipolar disorder/schizophrenia. 4. Elevated cholesterol. 5. Hypertension. CURRENT MEDICATIONS: His current medication list is reviewed in the chart. ALLERGIES: THERE ARE NONE REPORTED. FAMILY HISTORY: He denies family history of upper or lower GI malignancy. SOCIAL HISTORY: He does smoke and is trying to quit. He does use marijuana. He denies drug or alcohol use. REVIEW OF SYSTEMS: SKIN: No pruritus. HEENT: Negative. CARDIOPULMONARY: No shortness of breath or chest pain. GASTROINTESTINAL: As above. GENITOURINARY: Negative. NEUROPSYCHIATRIC: Negative. PHYSICAL EXAMINATION: GENERAL: Shows a pleasant male, sitting comfortably in bed, drinking coffee. VITAL SIGNS: Reviewed in electronic medical record and stable. SKIN: Anicteric. HEENT: Shows no scleral icterus. NECK: Without lymphadenopathy or thyromegaly. LUNGS: Clear. HEART: Shows a regular rate and rhythm S1, S2. No murmur. ABDOMEN: Soft without focal masses or tenderness. Bowel sounds are present. No organomegaly is noted. EXTREMITIES: Without edema. LABORATORY DATA: Reviewed. LFTs today are normal except for a mild elevation in his ALT, which was improving. IMPRESSION: Abdominal pain with nausea, vomiting, diarrhea. It is possible that his liver tests were elevated from an atypical viral hepatitis. He denies substance abuse, so this seems less likely. The pattern of elevation was mainly hepatocellular, nonobstructive and is improved. Limited MRI showed no filling defects. I suspect the common bile duct dilation may be chronic and it would be useful to obtain any previous studies that have been done to compare. At this point, I would recommend treating him empirically with a proton pump inhibitor because of his history of nausea and vomiting, as some of his nausea could represent atypical GERD. If his diarrhea persists, I would recommend obtaining some stool studies. He appears to be tolerating a diet and is scheduled to be discharged later today. I did recommend he follow up as an outpatient for colonoscopy and upper endoscopy could be arranged at the same time because of his upper GI symptoms. Thanks for asking me to see him. I will follow him in the hospital with you. MD JORDYN Lee/MARISSA / [id number] CONRAD
== END 2022-12-07 15:27 | disposition home or self-care (01) ==
LOC: HO.ED 15:50 → HO.EDOVER 16:22 → HO.S3 18:17
PROVIDERS: Physician Assistant; Admitting Provider Nurse Practitioner Acute Care; Emergency Provider Emergency Medicine; Visit Provider Nurse Practitioner Acute Care
DX: R10.9 Unspecified abdominal pain (principal); I10 Essential (primary) hypertension; R11.2 Nausea with vomiting, unspecified; D64.9 Anemia, unspecified; E78.5 Hyperlipidemia, unspecified; B19.20 Unspecified viral hepatitis C without hepatic coma; F31.9 Bipolar disorder, unspecified; F20.9 Schizophrenia, unspecified; F14.10 Cocaine abuse, uncomplicated; F12.10 Cannabis abuse, uncomplicated; F17.200 Nicotine dependence, unspecified, uncomplicated
CPT/HCPCS: 36415; 74181; 80048; 80053; 80061; 80076; 81003; 83036; 83690; 83735; 85025; 96372; 97161; 99221; 99285; J1643

== ENCOUNTER → 2022-12-06 16:14 | Outpatient (BNV) | payer MEDICAID, SELFPAY | PROVIDERS: Admitting Provider Nurse Practitioner Acute Care; Emergency Provider Emergency Medicine; Visit Provider Nurse Practitioner Acute Care | DX: R10.9 Unspecified abdominal pain (principal) | CPT/HCPCS: 99223; 99239 ==

== ENCOUNTER 2023-03-30 12:44 | Emergency (ER) | payer MEDICAID, SELFPAY ==
[2023-03-30 12:53] VITALS: BP 160/90; O2SAT 96
[2023-03-30 13:00] VITALS: BP 157/102; PULSE 100; RESP 18; TEMP 36.4; O2SAT 98; BMI 23.1
--- NOTE | 2023-03-30 13:13 | ED.OVERDOSE ---
HPI - Overdose General Chief Complaint: Overdose Stated Complaint: ?OD,NARCAN W/GOOD RESULT PER EMS Time Seen by Provider: 03/30/23 13:06 Source: patient and EMS Mode of arrival: ambulatory Limitations: no limitations History of Present Illness HPI Narrative: 62-year-old male presents past medical history alcohol abuse schizophrenia recently was found to a dilated common bile duct to emergency department after an overdose. Patient admits to using heroin. He states he has not used every day patient is agitated. Patient denies any issues he denies any as he does not want help with drug abuse. I did explain to him that he was recessed did her Narcan her breathing. Patient does not want to be evaluated just wants to go home. complaint: accidental overdose Related Data Previous Rx's Medication Instructions Recorded lisinopril 5 mg tablet 5 mg PO DAILY #30 tabs 12/07/22 loperamide 2 mg capsule (Imodium 2 mg PO Q6H PRN loose stool #12 12/07/22 A-D) caps Allergies Allergy/AdvReac Type Severity Reaction Status Date / Time No Known Allergies Allergy Verified 03/30/23 13:03 Review of Systems Review of Systems: Review of systems: General: Patient denies any fever chills recent illness or falls Musculoskeletal: Denies back pain or body aches or other injuries HEENT: denies headache, runny nose, ear pain Respiratory: denies shortness of breath, cough Cardiovascular: no chest pain or palpitations : denies dysuria, frequency Abdomen: no nausea vomiting denies abdominal pain Extremities: no swelling, no pain Skin: no diaphoresis Yes all other systems are reviewed and are negative [facility] Past Medical History Medical History (Updated 03/30/23 @ 13:17 by Isiah Hoskins DO) Cardiac arrhythmia HTN (hypertension) Surgical History History of appendectomy Family History Family History (Updated 12/06/22 @ 16:21 by Arlen Zhang NP) Mother Diabetes mellitus Social History Social History Household Members: None Housing: House Alcohol intake: never Patient Tobacco Use Status: Current everyday Tobacco user Tobacco use type: Cigarette Substance Use Type: Marijuana service: No Physical Exam Vital Signs: Vital Signs: Last Vital Signs Temp 97.6 F 11/01/23 13:00 Pulse 100 03/30/23 13:00 Resp 18 03/30/23 13:00 BP 157/102 H 03/30/23 13:00 Pulse Ox 98 03/30/23 13:00 O2 Del Method Room Air 03/30/23 13:00 BMI result Body Mass Index 23.1 General: Well-appearing well-nourished in no signs of distress HEENT: Normocephalic atraumatic Neck: No signs of JVD, no masses no tenderness or lymphadenopathy Cardiovascular: Regular rate and rhythm Respiratory: Clear to auscultation bilaterally Abdomen: Soft nontender no masses Extremities: Normal pedal pulses no signs of edema Skin: Dry warm no rashes Back: No tenderness full ROM Medical Decision Making Medical Decision Making [facility] Narrative: Patient overdose he is agitated but is alert orient to person place time does not want to be evaluated Differential Diagnosis Differential Diagnoses: The differential diagnosis associated with the presentation includes Heroin overdose Admission/Observation Consideration of admission/observation: Escalation of care including admission/observation considered Patient refused to stay Lab Data Unable to get any labs Independent Interpretation Interpretation: Unable to get an EKG Discharge Plan Discharge Clinical Impression: Drug overdose Patient Disposition: Left Against Medical Advice Instructions: Adult Overdose (ED) Prescriptions: No Action lisinopril 5 mg tablet 5 mg PO DAILY Qty: 30 0RF loperamide [Imodium A-D] 2 mg capsule 2 mg PO Q6H PRN (Reason: loose stool) Qty: 12 0RF Stand Alone Forms: Against Medical Advice
== END 2023-03-30 13:23 | disposition left against medical advice (07) ==
LOC: HO.ED 13:21
PROVIDERS: Emergency Provider Student in an Organized Health Care Education/Training Program
DX: R45.1 Restlessness and agitation (principal); T40.1X1A Poisoning by heroin, accidental (unintentional), initial encounter; Y92.9 Unspecified place or not applicable; I10 Essential (primary) hypertension; F17.210 Nicotine dependence, cigarettes, uncomplicated; F12.90 Cannabis use, unspecified, uncomplicated; F10.10 Alcohol abuse, uncomplicated; Y90.9 Presence of alcohol in blood, level not specified; F20.9 Schizophrenia, unspecified
CPT/HCPCS: 99282

== ENCOUNTER 2023-04-18 18:41 | Emergency (ER) | payer MEDICAID, SELFPAY ==
[2023-04-18 18:56] VITALS: BP 141/102; PULSE 105; RESP 18; O2SAT 98; BMI 25.1
--- NOTE | 2023-04-18 18:59 | PC.NURSE ---
GI after making aggressive and SI statements at his CSS. Agitated on arrival. Currently having his belongings checked and refusing to post exchange manager.
[2023-04-18 19:23] LABS: Appearance Urine Clear; Color Urine Yellow; Glucose Urine UA Negative (Negative); Leukocyte Esterase Urine Negative (Negative); Nitrite Urine Negative (Negative); Specific Gravity - Urine <= 1.005 (1.005-1.025); Urine Blood Negative (Negative); Urine Ketones Negative (Negative); Urine Protein Negative (Neg-Trace)
--- NOTE | 2023-04-18 19:25 | PC.NURSE ---
periodically threatening and agitated creating a hostile environment for employees trying to get blood sample.
[2023-04-18 19:28] LABS: Bacteria Urine None Seen (None Seen); Hyaline Casts Urine 0-2 /LPF (0-2); RBC Urine 0-2 /HPF (0-2); Squamous Epithelial Cell Urine 0-2 /HPF (0-2); WBC Urine 0-5 /HPF (0-5)
[2023-04-18 19:31] LABS: Amphetamine Screen Urine Not Detected (Not Detect); Barbiturates, Urine Not Detected (Not Detect); Benzodiazepines Screen Urine Not Detected (Not Detect); Cannabinoid Screen Urine Not Detected (Not Detect); Cocaine Screen Urine Not Detected (Not Detect); Fentanyl, urine Not Detected (Not Detect); Opiate Screen Urine Not Detected (Not Detect); Phencyclidine Screen Urine Not Detected (Not Detect)
[2023-04-18 19:33] LABS: MANUAL DIFF FLAG NO
[2023-04-18 19:48] LABS: Valproate 20.6 mcg/mL (50.0-100.0)
[2023-04-18 19:54] LABS: Acetaminophen LAB < 3 mcg/mL (<30); Alanine Aminotransferase 12 U/L (0-40); Albumin Level 4.5 g/dL (3.5-5.0); Alkaline Phosphatase 82 U/L (39-117); Anion Gap 10 (12-20); Aspartate Amino Transferase 16 U/L (5-37); Basophils Absolute Auto 0.1 X10*3/uL (0.0-0.2); Basophils Percent Auto 0.7 % (0-2); Bilirubin Total 0.4 mg/dL (0.0-1.0); Blood Urea Nitrogen 11 mg/dL (9-16); Calcium 9.7 mg/dL (8.4-10.2); Carbon Dioxide 26 mmol/L (22-29); Chloride 105 mmol/L (96-108); Creatinine Clr Calc Pharmacy 70.9; Eosinophils Absolute Auto 0.2 X10*3/uL (0.0-0.4); Eosinophils Percent Auto 2.3 % (0-4); Estimated Glomerular Filt Rate > 60; Ethanol < 10 mg/dL; Glucose Random 90 mg/dL (60-115); Hematocrit 39.5 % (42.0-52.0); Hemoglobin 13.9 g/dl (14.0-18.0); Imm Gran Abs Auto 0.02 X10*3/uL (0.00-0.03); Imm Gran Pct Auto 0.2 % (0.0-0.4); Lymphocytes Absolute Auto 2.7 X10*3/uL (1.2-4.9); Lymphocytes Percent Auto 32.3 % (20-40); Mean Corpuscular HGB Conc 35.2 g/dl (31.0-36.0); Mean Corpuscular Hemoglobin 29.9 pg (27.0-33.0); Mean Corpuscular Volume 84.9 fL (80.0-98.0); Mean Platelet Volume 9.8 fL (9.4-12.4); Monocytes Absolute Auto 0.6 X10*3/uL (0.1-1.2); Monocytes Percent Auto 7.1 % (2-11); Neutrophils Absolute Auto 4.8 x10*3/uL (2.0-8.3); Neutrophils Percent Auto 57.4 % (45-73); Platelet Count 229 X10*3/uL (160-400); Potassium 4.1 mmol/L (3.3-5.1); Red Blood Count 4.65 X10*6/uL (4.60-5.80); Red Cell Distribution Width 13.2 % (11.0-16.0); Sodium 137 mmol/L (135-145); White Blood Count 8.3 X10*3/uL (4.8-10.8)
--- NOTE | 2023-04-18 19:58 | ED_ITS ---
HPI - General Adult General Chief complaint: Psychiatric Symptoms Stated complaint: crisis Time Seen by Provider: 04/18/23 18:55 Source: patient, RN notes reviewed and old records reviewed Mode of arrival: EMS Limitations: no limitations History of Present Illness HPI narrative: 62-year-old male past medical history significant for opiate abuse presents for evaluation of agitation. Per EMS, the patient made vague suicidal comments at [facility] detox facility Apparently he made some vague, about wanting his knife. When I discussed with the patient he is very adamant that he is not suicidal and has never been suicidal. He states that he found out his grandkids were coming to visit him and polio, so he wanted to sign himself out of his detox program. ? Patient requested ?my belongings. ? He specifically stated that he wanted his nice and medications because those were locked out and he did not have access to that He states that if he had wanted to harm himself he has had that new knife for over a year and a half The detox facility was concerned that he had alcohol on board. It was reported that he was out drinking all day. ? The patient is adamant that he has not had any alcohol or drugs for the last 2 weeks because he has been in a program Related Data Previous Rx's Medication Instructions Recorded lisinopril 5 mg tablet 5 mg PO DAILY #30 tabs 12/07/22 loperamide 2 mg capsule (Imodium 2 mg PO Q6H PRN loose stool #12 12/07/22 A-D) caps Allergies Allergy/AdvReac Type Severity Reaction Status Date / Time No Known Allergies Allergy Verified 03/30/23 13:03 Review of Systems 2 Constitutional: Constitutional: Denies chills and Denies fever(s) Eyes: Eyes: Denies blurry vision ENT: Denies sore throat Cardiovascular: Cardiovascular: Denies chest pain and Denies dyspnea Respiratory: Respiratory: Denies cough and Denies dyspnea Gastrointestinal: Gastrointestinal: Denies abdominal pain Musculoskeletal: Musculoskeletal: Denies back pain Neurologic: Denies focal weakness Psychiatric: Psychiatric: Denies depression, Denies homicidal ideation and Denies suicidal ideation [facility] Past Medical History Medical History (Updated 04/18/23 @ 19:59 by Randi Welch) Cardiac arrhythmia HTN (hypertension) Surgical History History of appendectomy Family History Family History (Updated 12/06/22 @ 16:21 by Arlen Zhang NP) Mother Diabetes mellitus Social History Social History Household Members: None Housing: House Alcohol intake: never Patient Tobacco Use Status: Current everyday Tobacco user Tobacco use type: Cigarette Substance Use Type: Marijuana service: No Physical Exam ED Vital Signs: Vital Signs - 24 hr 04/18/23 18:56 Pulse Rate 105 H Respiratory Rate 18 Blood Pressure 141/102 H Pulse Oximetry 98 Oxygen Delivery Method Room Air BMI result Body Mass Index 25.1 Const Other: Patient is loud, belligerent but is following directions and thus far cooperative General: healthy appearing, no acute distress, alert and awake; No combative Nutritional Appearance: well nourished Orientation/consciousness: patient oriented x3 HENMT Head: Yes normocephalic and Yes atraumatic Eyes Eyelids: Yes eyelids normal Conjunctivae: conjunctivae normal Sclerae: sclerae normal Corneas: corneas normal Pupils: Equal, round and reactive pupils present EOM: EOMs intact bilaterally Neck Neck: Yes full ROM Resp Effort & Inspection: normal respiratory effort, able to speak in complete sentences and not labored GI Inspection: No distended Palpation (GI): Soft to palpation, not firm, nontender, no guarding and not rigid Skin General skin exam: elasticity normal Neuro General: patient oriented x3 Cranial nerves: Yes Equal, round and reactive pupils present and Yes Bilaterally intact EOM present Cognition (Neuro): normal cognition Extrem Other: Moving all extremities well without any obvious deformities Medical Decision Making Medical Decision Making MDM Narrative: 62-year-old male presents for evaluation of reported suicidal ideation. He is presenting from a detox facility. The patient is adamant that he is not suicidal. He also also adamant that he has not been using drugs or alcohol in the last 2 weeks. The staff at the facility was concerned that he was somehow drinking alcohol all day. The patient's alcohol level was negative, he has no drugs in his system. He is coherent, admit that he is not suicidal but was simply requesting his belongings we could leave the facility. The patient will be discharged at this time Differential Diagnosis Differential Diagnoses: The differential diagnosis associated with the presentation includes Agitation Substance abuse Depression Suicidal ideation Lab Data 04/18/23 19:26 04/18/23 19:26 Labs: Lab Results 04/18/23 04/18/23 04/18/23 Range/Units 19:15 19:26 19:27 WBC 8.3 (4.8-10.8) X10*3/uL RBC 4.65 (4.60-5.80) X10*6/uL Hgb 13.9 L (14.0-18.0) g/dl Hct 39.5 L (42.0-52.0) % MCV 84.9 (80.0-98.0) fL MCH 29.9 (27.0-33.0) pg MCHC 35.2 (31.0-36.0) g/dl RDW 13.2 (11.0-16.0) % Plt Count 229 (160-400) X10*3/uL MPV 9.8 (9.4-12.4) fL Immature Gran % (Auto) 0.2 (0.0-0.4) % Neut % (Auto) 57.4 (45-73) % Lymph % (Auto) 32.3 (20-40) % [place] % (Auto) 7.1 (2-11) % Eos % (Auto) 2.3 (0-4) % Baso % (Auto) 0.7 (0-2) % Lymph # (Auto) 2.7 (1.2-4.9) X10*3/uL [place] # (Auto) 0.6 (0.1-1.2) X10*3/uL Eos # (Auto) 0.2 (0.0-0.4) X10*3/uL Baso # (Auto) 0.1 (0.0-0.2) X10*3/uL Abs Immat Gran (auto) 0.02 (0.00-0.03) X10*3/uL Absolute Neuts (auto) 4.8 (2.0-8.3) x10*3/uL Absolute Nucleated RBC 0.000 (0.0-0.012) X10*3/uL Nucleated RBC % (auto) 0.0 (0.0-0.2) /100WBC Sodium 137 (135-145) mmol/L Potassium 4.1 (3.3-5.1) mmol/L Chloride 105 (96-108) mmol/L Carbon Dioxide 26 (22-29) mmol/L Anion Gap 10 L (12-20) BUN 11 (9-16) mg/dL Creatinine 1.12 (0.5-1.4) mg/dL Estim Creat Clear Calc 70.9 Estimated GFR > 60 Random Glucose 90 (60-115) mg/dL Calcium 9.7 (8.4-10.2) mg/dL Total Bilirubin 0.4 (0.0-1.0) mg/dL AST 16 (5-37) U/L ALT 12 (0-40) U/L Alkaline Phosphatase 82 (39-117) U/L Total Protein 8.0 (6.5-8.0) g/dL Albumin 4.5 (3.5-5.0) g/dL Urine Color Yellow Urine Appearance Clear Urine pH 6.0 (5.0-9.0) Ur Specific [place] <= 1.005 (1.005-1.025) Urine Protein Negative (Neg-Trace) mg/dL Urine Glucose (UA) Negative (Negative) mg/dL Urine Ketones Negative (Negative) mg/dL Urine Blood Negative (Negative) Urine Nitrite Negative (Negative) Ur Leukocyte Esterase Negative (Negative) Urine RBC 0-2 (0-2) /HPF Urine WBC 0-5 (0-5) /HPF Ur Squamous Epith Cells 0-2 (0-2) /HPF Urine Bacteria None Seen (None Seen) Hyaline Casts 0-2 (0-2) /LPF Urine Opiates Screen Not Detected (Not Detect) Urine Fentanyl Screen Not Detected (Not Detect) Acetaminophen < 3 (<30) mcg/mL Ur Barbiturates Screen Not Detected (Not Detect) Valproic Acid 20.6 L (50.0-100.0) mcg/mL Ur Phencyclidine Scrn Not Detected (Not Detect) Ur Amphetamines Screen Not Detected (Not Detect) U Benzodiazepines Scrn Not Detected (Not Detect) Urine Cocaine Screen Not Detected (Not Detect) U Marijuana (THC) Screen Not Detected (Not Detect) Ethyl Alcohol < 10 mg/dL Discharge Plan Discharge Clinical Impression: Agitation, Acute anxiety Patient Disposition: Home, Self-Care Additional Instructions: Return to the ER or call 911 immediately if you have any thoughts of harming yourself or anybody else Prescriptions: No Action lisinopril 5 mg tablet 5 mg PO DAILY Qty: 30 0RF loperamide [Imodium A-D] 2 mg capsule 2 mg PO Q6H PRN (Reason: loose stool) Qty: 12 0RF Interventions: Tillman-Suicide Risk Severity Scale Last Done: 04/18/23 19:32 ED Discharge Assessment Last Done: 04/18/23 20:02
--- NOTE | 2023-04-18 21:12 | MHC.CARE ---
Carine/Omar Castañeda from [facility] contacted CARE to inform us of pt's expect. She states pt arrived to [facility] facility on the and not following rules. Was being d/c and became aggressive, attempting to take out his knife. Per report pt?s son recently .
== END 2023-04-18 21:15 | disposition home or self-care (01) ==
LOC: HO.ED 20:11
PROVIDERS: Emergency Provider Internal Medicine
DX: R45.1 Restlessness and agitation (principal); F41.9 Anxiety disorder, unspecified; I10 Essential (primary) hypertension; F17.210 Nicotine dependence, cigarettes, uncomplicated; F11.10 Opioid abuse, uncomplicated; Z79.899 Other long term (current) drug therapy
CPT/HCPCS: 36415; 80053; 80143; 80164; 80307; 81001; 85025; 99283

== ENCOUNTER 2023-04-27 08:01 | Outpatient (REF) | payer MEDICAID, SELFPAY ==
[2023-04-27 11:20] LABS: MANUAL DIFF FLAG NO
[2023-04-27 11:40] LABS: Basophils Percent Auto 0.7 % (0-2); Eosinophils Absolute Auto 0.2 X10*3/uL (0.0-0.4); Eosinophils Percent Auto 2.7 % (0-4); Hematocrit 39.8 % (42.0-52.0); Hemoglobin 13.5 g/dl (14.0-18.0); Imm Gran Abs Auto 0.02 X10*3/uL (0.00-0.03); Imm Gran Pct Auto 0.3 % (0.0-0.4); Lymphocytes Percent Auto 32.7 % (20-40); Mean Corpuscular HGB Conc 33.9 g/dl (31.0-36.0); Mean Corpuscular Hemoglobin 29.1 pg (27.0-33.0); Mean Corpuscular Volume 85.8 fL (80.0-98.0); Mean Platelet Volume 11.6 fL (9.4-12.4); Monocytes Absolute Auto 0.4 X10*3/uL (0.1-1.2); Monocytes Percent Auto 6.4 % (2-11); Neutrophils Absolute Auto 3.4 x10*3/uL (2.0-8.3); Neutrophils Percent Auto 57.2 % (45-73); Platelet Count 228 X10*3/uL (160-400); Red Blood Count 4.64 X10*6/uL (4.60-5.80); Red Cell Distribution Width 12.8 % (11.0-16.0)
[2023-04-27 12:09] LABS: Cholesterol 192 mg/dL (<200); HDL Cholesterol 54 mg/dL (>40); LDL Cholesterol Calculated 130 mg/dL (<100); Triglycerides 44 mg/dL (<150)
[2023-04-27 12:10] LABS: Alanine Aminotransferase 11 U/L (0-40); Albumin Level 4.3 g/dL (3.5-5.0); Alkaline Phosphatase 70 U/L (39-117); Anion Gap 11 (12-20); Aspartate Amino Transferase 17 U/L (5-37); Bilirubin Direct 0.2 mg/dL (0.0-0.5); Bilirubin Total 0.8 mg/dL (0.0-1.0); Blood Urea Nitrogen 13 mg/dL (9-16); Calcium 9.3 mg/dL (8.4-10.2); Carbon Dioxide 24 mmol/L (22-29); Chloride 106 mmol/L (96-108); Estimated Glomerular Filt Rate > 60; Glucose Random 87 mg/dL (60-115); Potassium 3.8 mmol/L (3.3-5.1); Sodium 137 mmol/L (135-145); TSH reflex Free T4 0.26 uIU/mL (0.32-4.0); Total Protein 7.7 g/dL (6.5-8.0)
[2023-04-27 12:21] LABS: HIV AB/AG Nonreactive (Nonreactive); HIV Num 1 0.06 S/CO (0.00-0.99)
[2023-04-27 12:25] LABS: Syphilis Screen Nonreactive (Nonreactive)
[2023-04-27 12:40] LABS: Free T4 (Free Thyroxine) 0.87 ng/dL (0.71-1.85)
[2023-04-28 18:58] LABS: HCV Log PCR <1.18 NOT DETECTED Log IU/mL (NOT DETECTED); HepC Viral Load <15 NOT DETECTED IU/mL (NOT DETECTED)
[2023-04-29 21:43] LABS: TS Negative Control Passed; TS Panel A 0; TS Panel B 0; TS Positive Control Passed; TSpotTB Negative (Negative)
== END 2023-04-27 08:02 | disposition home or self-care (01) ==
LOC: HO.HHCL 08:01
PROVIDERS: Visit Provider Internal Medicine
DX: Z11.4 Encounter for screening for human immunodeficiency virus [HIV] (principal); Z11.1 Encounter for screening for respiratory tuberculosis; I25.10 Atherosclerotic heart disease of native coronary artery without angina pectoris; B18.2 Chronic viral hepatitis C; I10 Essential (primary) hypertension; F32.2 Major depressive disorder, single episode, severe without psychotic features
CPT/HCPCS: 36415; 80053; 80061; 82248; 84439; 84443; 85025; 86481; 86780; 87389; 87522

== ENCOUNTER 2023-04-27 12:49 | Emergency (ER) | payer MEDICAID, SELFPAY ==
[2023-04-27 13:01] VITALS: BP 104/72; BP 99/65; PULSE 80; PULSE 90; RESP 16; TEMP 36.4; O2SAT 98; BMI 27.1
--- NOTE | 2023-04-27 13:08 | ECG_ITS ---
Test Reason : dizziness Blood Pressure : / mmHG Vent. Rate : 076 BPM Atrial Rate : 076 BPM P-R Int : 162 ms QRS Dur : 092 ms QT Int : 372 ms P-R-T Axes : 062 010 027 degrees QTc Int : 418 ms Normal sinus rhythm Minimal voltage criteria for LVH, may be normal variant ( Sokolow-Burr ) Borderline ECG When compared with ECG of 07-MAR-2021 09:05, No significant change was found Referred By: Yamila Abdalla Electronically Signed By:ZE DIALLO MD
--- NOTE | 2023-04-27 13:13 | ED_ITS ---
HPI - Dizziness General Chief Complaint: Dizziness Stated Complaint: DIZZY,NEW BP MED ,FROM MD OFFICE PER EMS Time Seen by Provider: 04/27/23 13:11 Source: patient and old records reviewed Mode of arrival: EMS Limitations: no limitations History of Present Illness HPI Narrative: 62 yo male with PMH of HTN, Hep C infection, cocaine and THC use who presents from the clinic with c/o starting 5mg amlodipine for the first time this AM by PCP around 730 a couple of hours later he then developed dizziness when standing. He feels fine at rest, no CP/SOB, no GIB symptoms. MD elicited complaint: dizziness Onset (ago): hour(s) (few) Timing: sudden onset and intermittent Severity: moderate Description: lightheadedness Context: change in body position (only when standing) History of similar symptoms: No Exacerbating factors: standing Relieving factors: remaining still and lying down Associated symptoms: denies other symptoms Related Data Previous Rx's Medication Instructions Recorded lisinopril 5 mg tablet 5 mg PO DAILY #30 tabs 12/07/22 loperamide 2 mg capsule (Imodium 2 mg PO Q6H PRN loose stool #12 12/07/22 A-D) caps Allergies Allergy/AdvReac Type Severity Reaction Status Date / Time No Known Allergies Allergy Verified 03/30/23 13:03 Review of Systems 2 Review of Systems: Constitutional : No Fever, No Chills, No Fatigue ENT/Mouth : No sore throat, No Rhinorrhea Eyes: No Eye Pain, No Swelling, No Redness Cardiovascular : No Chest Pain, No SOB, No Dyspnea on Exertion Respiratory : No Cough, No Sputum Gastrointestinal : No Nausea, No Vomiting, No Diarrhea, No abdominal Pain Genitourinary : No Dysuria, No Urinary Frequency, No Hematuria, Musculoskeletal : No joint pain, No Myalgias, No Joint Swelling Skin : No Skin Lesions, No rash Neuro : No Weakness, No Numbness, pos Dizziness, noHeadache Psych : No Anxiety/Panic, No Depression Heme/Lymph: No Bruising, No Bleeding,No Lymphadenopathy Endocrine : No Polyuria, No Polydipsia All other systems reviewed and are negative [facility] Past Medical History Attestation statement: The following information was validated with the patient. Source: old records reviewed Medical History Cardiac arrhythmia HTN (hypertension) Surgical History History of appendectomy Family History Family History (Updated 12/06/22 @ 16:21 by Arlen Zhang NP) Mother Diabetes mellitus Social History Social History Household Members: None Housing: House Alcohol intake: never Patient Tobacco Use Status: Current everyday Tobacco user Tobacco use type: Cigarette Use of substances other than those prescribed or required for medical reasons: No Substance Use Type: Marijuana Advance Directives: No Advance Directives Information Provided: Yes service: No Physical Exam 2 Vital Signs: Vital Signs: Last Vital Signs Temp 97.6 F 04/27/23 13:01 Pulse 95 04/27/23 13:51 Resp 16 04/27/23 13:01 BP 112/65 04/27/23 13:51 Pulse Ox 98 04/27/23 13:01 O2 Del Method Room Air 04/27/23 13:01 BMI result Body Mass Index 27.1 Appearance: Alert. Oriented X3. No acute distress. Eyes: Pupils equal, round and reactive to light. ENT: Pharynx normal. Neck: Normal inspection. Neck supple. CVS: Normal heart rate and rhythm. Pulses normal. Respiratory: No respiratory distress. Breath sounds normal. Abdomen: Soft and non-tender. Skin: Skin warm and dry. Normal skin color. Normal skin turgor. Extremities: No lower extremity edema. No calf ttp Neuro: Oriented X 3. No motor deficit. No sensory deficit. Course Course Course Narrative: sugar low not on DM medications, eating, recheck improved Reevaluation(s) Reevaluation #1: was fasting for labs that is why sugar was low , feeling better will ambulate and recheck Reevaluation #2: became rude to staff on DC and agitated making verbal threats you better watch yourself Medications Administered Discontinued Medications Generic Name Dose Route Start Last Admin Trade Name Freq PRN Reason Stop Dose Admin Sodium Chloride 1,000 mls @ 999 mls/hr 04/27/23 13:30 04/27/23 14:41 Ns IV 04/27/23 14:30 999 mls/hr .Q1H1M AYSE Administration Medical Decision Making Medical Decision Making MDM Narrative: 62 yo male with PMH of HTN with recent new med of amlodipine 5mg here with c/o dizziness this AM after starting medication and feeling dizzy when he stands denies GIB symptoms, no fevers, no CP/SOB. He notes he only has symptoms when he stands. He reports first time taking amlodipine. At this time no neuro symptoms to suggest posterior stroke will obtain basic labs, ortho VS and give liter of fluid. will hold amlodipine Differential Diagnosis Differential Diagnoses: The differential diagnosis associated with the presentation includes med reaction, orthostatic hypotension Admission/Observation Consideration of admission/observation: Escalation of care including admission/observation considered neg orthostatic VS, feels better, labs stable Lab Data MDM Lab Attestation statement: I reviewed the patient's lab results. 04/27/23 14:03 04/27/23 14:03 Labs: Lab Results 04/27/23 04/27/23 04/27/23 Range/Units 14:03 14:57 15:52 WBC 7.8 (4.8-10.8) X10*3/uL RBC 4.42 L (4.60-5.80) X10*6/uL Hgb 12.9 L (14.0-18.0) g/dl Hct 37.7 L (42.0-52.0) % MCV 85.3 (80.0-98.0) fL MCH 29.2 (27.0-33.0) pg MCHC 34.2 (31.0-36.0) g/dl RDW 12.7 (11.0-16.0) % Plt Count 210 (160-400) X10*3/uL MPV 10.3 (9.4-12.4) fL Immature Gran % (Auto) 0.4 (0.0-0.4) % Neut % (Auto) 72.1 (45-73) % Lymph % (Auto) 18.6 L (20-40) % [place] % (Auto) 6.8 (2-11) % Eos % (Auto) 1.5 (0-4) % Baso % (Auto) 0.6 (0-2) % Lymph # (Auto) 1.5 (1.2-4.9) X10*3/uL [place] # (Auto) 0.5 (0.1-1.2) X10*3/uL Eos # (Auto) 0.1 (0.0-0.4) X10*3/uL Baso # (Auto) 0.1 (0.0-0.2) X10*3/uL Abs Immat Gran (auto) 0.03 (0.00-0.03) X10*3/uL Absolute Neuts (auto) 5.6 (2.0-8.3) x10*3/uL Absolute Nucleated RBC 0.000 (0.0-0.012) X10*3/uL Nucleated RBC % (auto) 0.0 (0.0-0.2) /100WBC Sodium 143 (135-145) mmol/L Potassium 3.8 (3.3-5.1) mmol/L Chloride 108 (96-108) mmol/L Carbon Dioxide 29 (22-29) mmol/L Anion Gap 10 L (12-20) BUN 12 (9-16) mg/dL Creatinine 0.90 (0.5-1.4) mg/dL Estim Creat Clear Calc 91.0 Estimated GFR > 60 POC Glucose 100 126 H (60-115) mg/dL Random Glucose 53 L* (60-115) mg/dL Calcium 9.7 (8.4-10.2) mg/dL Magnesium 2.3 (1.6-2.6) mg/dL Total Bilirubin 0.5 (0.0-1.0) mg/dL AST 16 (5-37) U/L ALT 11 (0-40) U/L Alkaline Phosphatase 72 (39-117) U/L Total Protein 7.9 (6.5-8.0) g/dL Albumin 4.4 (3.5-5.0) g/dL Influenza Type A (PCR) NEGATIVE (Negative) Influenza Type B (PCR) NEGATIVE (Negative) RSV RNA Qual (PCR) NEGATIVE (Negative) SARS-CoV-2 RNA (RT-PCR) NEGATIVE (Negative) Independent Interpretation I performed an independent interpretation of an: EKG Interpretation: Rate: 76 Rhythm: NSR [place]: normal , LVH Normal P waves. Normal ADDY. Normal QRS complex. ST T wave : normal no [place] qTC: normal prior studies: no acute ischemia The study has been interpreted contemporaneously by me. . Independent Historian Clinical information obtained from an independent historian. History obtained from or confirmed by: EMS External Record Review External record reviewed: Inpatient record Discharge Plan Discharge Clinical Impression: Near syncope, Hypoglycemia Medication adverse effect Qualifiers: Encounter type: initial encounter Qualified Code(s): T50.905A - Adverse effect of unspecified drugs, medicaments and biological substances, initial encounter Patient Disposition: Home, Self-Care Instructions: Non-diabetic Hypoglycemia (ED), Near Syncope (ED) Additional Instructions: return for worsening dizziness, black or bloody stools, vomiting, chest pain or trouble breathing. call your doctor tomorrow for appointment STOP TAKING AMLODIPINE. eat a large meal tonight Prescriptions: No Action lisinopril 5 mg tablet 5 mg PO DAILY Qty: 30 0RF loperamide [Imodium A-D] 2 mg capsule 2 mg PO Q6H PRN (Reason: loose stool) Qty: 12 0RF
[2023-04-27 13:49] VITALS: BP 113/69; PULSE 71
[2023-04-27 13:50] VITALS: BP 108/63; PULSE 81
[2023-04-27 13:51] VITALS: BP 112/65; PULSE 95
[2023-04-27 14:09] LABS: MANUAL DIFF FLAG NO
[2023-04-27 14:12] LABS: Basophils Absolute Auto 0.1 X10*3/uL (0.0-0.2); Basophils Percent Auto 0.6 % (0-2); Eosinophils Absolute Auto 0.1 X10*3/uL (0.0-0.4); Eosinophils Percent Auto 1.5 % (0-4); Hematocrit 37.7 % (42.0-52.0); Hemoglobin 12.9 g/dl (14.0-18.0); Imm Gran Abs Auto 0.03 X10*3/uL (0.00-0.03); Imm Gran Pct Auto 0.4 % (0.0-0.4); Lymphocytes Absolute Auto 1.5 X10*3/uL (1.2-4.9); Lymphocytes Percent Auto 18.6 % (20-40); Mean Corpuscular HGB Conc 34.2 g/dl (31.0-36.0); Mean Corpuscular Hemoglobin 29.2 pg (27.0-33.0); Mean Corpuscular Volume 85.3 fL (80.0-98.0); Mean Platelet Volume 10.3 fL (9.4-12.4); Monocytes Absolute Auto 0.5 X10*3/uL (0.1-1.2); Monocytes Percent Auto 6.8 % (2-11); Neutrophils Absolute Auto 5.6 x10*3/uL (2.0-8.3); Neutrophils Percent Auto 72.1 % (45-73); Platelet Count 210 X10*3/uL (160-400); Red Blood Count 4.42 X10*6/uL (4.60-5.80); Red Cell Distribution Width 12.7 % (11.0-16.0); White Blood Count 7.8 X10*3/uL (4.8-10.8)
[2023-04-27] MEDS: 0.9 % Sodium Chloride 1,000 ML 999 ML IV (14:41)
[2023-04-27 14:47] LABS: Alanine Aminotransferase 11 U/L (0-40); Albumin Level 4.4 g/dL (3.5-5.0); Alkaline Phosphatase 72 U/L (39-117); Anion Gap 10 (12-20); Aspartate Amino Transferase 16 U/L (5-37); Bilirubin Total 0.5 mg/dL (0.0-1.0); Blood Urea Nitrogen 12 mg/dL (9-16); Calcium 9.7 mg/dL (8.4-10.2); Carbon Dioxide 29 mmol/L (22-29); Chloride 108 mmol/L (96-108); Estimated Glomerular Filt Rate > 60; Glucose Random 53 mg/dL (60-115); Magnesium 2.3 mg/dL (1.6-2.6); Potassium 3.8 mmol/L (3.3-5.1); Sodium 143 mmol/L (135-145); Total Protein 7.9 g/dL (6.5-8.0)
[2023-04-27 14:52] LABS: Influenza A PCR NEGATIVE (Negative); Influenza B PCR NEGATIVE (Negative); Resp Syncy Virus RNA Qual PCR NEGATIVE (Negative); SARS COV2 PCR INHOUSE NEGATIVE (Negative)
--- NOTE | 2023-04-27 14:57 | PC.NURSE ---
pt has been given orange juice and 2 sandwiches. a&ox4 at this time. poct 100
[2023-04-27 15:01] LABS: Glucose, Whole Blood 100 mg/dL (60-115)
[2023-04-27 15:56] LABS: Glucose, Whole Blood 126 mg/dL (60-115)
== END 2023-04-27 16:10 | disposition home or self-care (01) ==
PROVIDERS: Physician Assistant Medical; Emergency Provider Emergency Medicine
DX: R42 Dizziness and giddiness (principal); R94.31 Abnormal electrocardiogram [ECG] [EKG]; E16.2 Hypoglycemia, unspecified; F14.90 Cocaine use, unspecified, uncomplicated; Z20.822 Contact with and (suspected) exposure to COVID-19; Z20.828 Contact with and (suspected) exposure to other viral communicable diseases; Z79.899 Other long term (current) drug therapy
CPT/HCPCS: 0241U; 36415; 80053; 82947; 83735; 85025; 93005; 99283; 99285

== ENCOUNTER 2023-08-25 10:15 | Outpatient (REF) | payer MEDICARE, MEDICAID, SELFPAY ==
[2023-08-25 11:43] LABS: Alanine Aminotransferase 10 U/L (0-40); Albumin Level 4.2 g/dL (3.5-5.0); Alkaline Phosphatase 64 U/L (39-117); Aspartate Amino Transferase 13 U/L (5-37); Bilirubin Direct 0.1 mg/dL (0.0-0.5); Bilirubin Total 0.3 mg/dL (0.0-1.0); Total Protein 7.2 g/dL (6.5-8.0)
== END 2023-08-25 10:16 | disposition home or self-care (01) ==
LOC: HO.HHCL 10:15
PROVIDERS: Visit Provider Nurse Practitioner Acute Care
DX: R10.9 Unspecified abdominal pain (principal)
CPT/HCPCS: 36415; 80076

== ENCOUNTER 2023-09-02 13:50 | Outpatient (REF) | payer MEDICARE, MEDICAID, SELFPAY ==
[2023-09-02 17:23] LABS: TSH reflex Free T4 0.19 uIU/mL (0.32-4.0)
[2023-09-02 18:18] LABS: Free T4 (Free Thyroxine) 1.21 ng/dL (0.71-1.85)
[2023-09-04 21:23] LABS: TS Negative Control Passed; TS Panel A 1; TS Panel B 0; TS Positive Control Passed; TSpotTB Negative (Negative)
== END 2023-09-02 13:51 | disposition home or self-care (01) ==
LOC: HO.HHCL 13:50
PROVIDERS: Visit Provider Internal Medicine
DX: Z00.00 Encounter for general adult medical examination without abnormal findings (principal); R79.89 Other specified abnormal findings of blood chemistry
CPT/HCPCS: 36415; 84439; 84443; 86481

== ENCOUNTER 2023-09-19 12:48 | Outpatient (REF) | payer MEDICARE, MEDICAID, SELFPAY ==
[2023-09-19 14:15] LABS: Alanine Aminotransferase 12 U/L (0-40); Albumin Level 4.5 g/dL (3.5-5.0); Alkaline Phosphatase 67 U/L (39-117); Anion Gap 11 (12-20); Aspartate Amino Transferase 14 U/L (5-37); Bilirubin Total 0.4 mg/dL (0.0-1.0); Blood Urea Nitrogen 10 mg/dL (9-16); Calcium 9.6 mg/dL (8.4-10.2); Carbon Dioxide 30 mmol/L (22-29); Chloride 108 mmol/L (96-108); Estimated Glomerular Filt Rate > 60; Glucose Random 84 mg/dL (60-115); Potassium 4.5 mmol/L (3.3-5.1); Sodium 144 mmol/L (135-145); Total Protein 7.5 g/dL (6.5-8.0)
[2023-09-19 14:17] LABS: Valproate 78.6 mcg/mL (50.0-100.0)
== END 2023-09-19 12:49 | disposition home or self-care (01) ==
LOC: HO.HHCL 12:48
PROVIDERS: Visit Provider Clinical Nurse Specialist Psychiatric/Mental Health, Adult
DX: Z79.899 Other long term (current) drug therapy (principal)
CPT/HCPCS: 36415; 80053; 80164

== ENCOUNTER → 2023-11-11 07:46 | Outpatient (REF) | payer MEDICARE, MEDICAID, SELFPAY ==
--- NOTE | 2023-11-11 07:50 | CA_ITS ---
Transthoracic Echocardiogram Patient (Last, First, Middle): Mendoza Webster L Gender: Male Date of : 1960 Age: 63 Procedure Date: 11/11/2023 Procedure Type: Transthoracic Echocardiogram Location: OP Height: 193.04 cm Weight: 88.45 kg BSA: 2.19 m2 Heart Rate: bpm BP: 140 / 88 mmHg Electron Beam Photo Mask Technician: TO Referring MD: Marie Cardona CHILD SUPPORT INVESTIGATOR Symptoms: I51.7 LVH NEEDS PRE OP CLEARANCE Study Quality: Fair ECG Rhythm: Sinus Conclusions: - The left ventricular systolic function is mildly decreased. The calculated ejection fraction is 51% by biplane method. - No obvious valvular pathology seen on this study. - There is mild dilatation of the ascending aorta measuring 4.00 cm. Findings Procedure Information The patient declines contrast. Left Ventricle Normal left ventricular cavity size. There is mildly increased left ventricular wall thickness. The left ventricular systolic function is mildly decreased. The calculated ejection fraction is 51% by biplane method. There is mild global hypokinesis. Diastolic function is normal for age. LV peak GLS -15.4%, mildly diminished. Right Ventricle Normal right ventricular cavity size and systolic function. Atria The left atrium is mildly dilated. The right atrium is normal in size. Aortic Valve There is a normal trileaflet aortic valve. There is no aortic valve stenosis. There is no aortic valve regurgitation. Mitral Valve The mitral valve appears normal. There is trace mitral valve regurgitation. There is no mitral valve stenosis. Pulmonic Valve The pulmonic valve is likely normal. Tricuspid Valve Normal tricuspid valve structure. There is mild tricuspid valve regurgitation. There is no evidence of pulmonary hypertension. Great Vessels There is mild dilatation of the ascending aorta measuring 4.00 cm. Venous The inferior vena cava is normal in size and collapses greater than 50% with inspiration. Pericardium/Pleural There is no evidence of pericardial effusion. Prior Study Comparison No prior study available for comparison. Recommendations, Care & Conclusions No obvious valvular pathology seen on this study. Measurements 2D Linear Measurements IVSd: 1.24 0.6-0.9/0.6-1.0 cm LVIDd: 4.86 3.9-5.3/4.2-5.9 cm LVIDd Index: 2.22 2.4-3.2/2.2-3.1 cm/m2 LVIDs: 3.77 2.0-3.6 cm LVPWd: 1.26 0.7-1.1 cm LA Diam: 4.00 2.7-3.8/3.0-4.0 cm LAIDs Index: 1.83 1.5-2.3 cm/m2 LV Mass: 295.25 67-162/88-224 g LV Mass Index: 134.82 43-95/49-115 g/m2 LVOT Diam: 2.30 3.0+(-)1.3 cm 2D Systolic Function EF 4C: 45.10 >55% EF 2C: 55.60 >55% EF BiP: 51.40 >55% Mitral Valve MV Pk E: 0.58 MV PK A: 0.50 MV Decel Time: 207.00 E/A: 1.20 E'Lateral: 6.74 E'Medial: 5.44 E/E' Med: 10.70 E/E' Lat: 8.60 PHT: 61.00 MVA PHT: 3.61 Decel [place]: 2.82 Aortic Valve AoV Pk Seun: 1.23 AoV Pk Grad: 6.00 LVOT LVOT Pk Seun: 0.83 LVOT Mn Seun: 0.54 LVOT VTI: 0.19 LVOT Pk Grad: 3.00 LVOT Mn Grad: 1.00 LVOT Diam: 2.30 LVOT Area: 4.15 Diastolic Function MV Pk E: 0.58 MV Pk A: 0.50 E/A: 1.20 E'Medial: 5.44 E/E' Med: 10.70 E' Laterial: 6.74 E/E' Lat: 8.60 Right Ventricle TAPSE (mm): 19.10 TVS' Seun: 9.88 Tricuspid Valve TR Pk Seun: 1.77 TR Pk Grad: 13.00 RA Press: 3.00 RVSP: 16.00 Great Vessels Aorta Sinus of Valsalva: 3.73 2.0-3.[address] [place]: 3.04 1.7-3.4 cm Ao Asc: 4.00 2.1-3.4 cm Updated in Other Vendor System with Status of Final Mahesh Roy MD electronically signed on 11/12/2023 12:02:38 PM with status of Final
== END ==
LOC: HO.CARD 07:46
PROVIDERS: Visit Provider Registered Nurse
DX: I51.7 Cardiomegaly (principal)
CPT/HCPCS: 93306; 93356

== ENCOUNTER → 2023-11-11 07:50 | Outpatient (BNV) | payer MEDICARE, MEDICAID, SELFPAY | PROVIDERS: Visit Provider Internal Medicine | DX: I36.1 Nonrheumatic tricuspid (valve) insufficiency (principal); R93.1 Abnormal findings on diagnostic imaging of heart and coronary circulation | CPT/HCPCS: 93306; 93356 ==

== ENCOUNTER 2023-11-14 22:32 | Emergency (ER) | payer MEDICARE, MEDICAID, SELFPAY ==
--- NOTE | 2023-11-14 | ECG_ITS ---
Test Reason : CHEST PAIN Blood Pressure : / mmHG Vent. Rate : 080 BPM Atrial Rate : 080 BPM P-R Int : 152 ms QRS Dur : 084 ms QT Int : 388 ms P-R-T Axes : 052 020 047 degrees QTc Int : 447 ms Normal sinus rhythm Minimal voltage criteria for LVH, may be normal variant ( Sokolow-Burr ) Borderline ECG When compared with ECG of 27-APR-2023 13:24, No significant change was found Referred By: Generic ED Physician Electronically Signed By:Jas Ho
[2023-11-14 22:49] VITALS: BP 123/80; BP 168/88; PULSE 80; PULSE 85; RESP 16; O2SAT 95; O2SAT 98; BMI 25.0
[2023-11-14 22:49] LABS: MANUAL DIFF FLAG NO
--- NOTE | 2023-11-14 22:49 | ED.CHESTPAIN ---
HPI - Chest Pain General Chief Complaint: Chest Pain Stated Complaint: CP X 1 HR Time Seen by Provider: 11/14/23 22:46 Source: patient and police Mode of arrival: ambulatory Limitations: no limitations History of Present Illness ED Provider: angelica MADRID narrative: Patient with no known coronary disease had a echo done on 11/10 which showed slightly decreased left ventricular systolic function no pericardial fluid seen comes here from police custody as having pain for last 1 hour after rest saying that patient had fluid around the heart during the echo which was done on 11/10 although report says no pericardial effusion. Patient is very rude in the ER very abusive and upset speaking full sentences not in any distress Related Data Previous Rx's ?Medication ?Instructions ?Recorded lisinopril 5 mg tablet 5 mg PO DAILY #30 tabs 12/07/22 loperamide 2 mg capsule (Imodium 2 mg PO Q6H PRN loose stool #12 12/07/22 A-D) caps Allergies Allergy/AdvReac Type Severity Reaction Status Date / Time No Known Allergies Allergy Verified 11/14/23 22:54 Review of Systems Review of Systems: Yes all other systems are reviewed and are negative [facility] Past Medical History Medical History Cardiac arrhythmia HTN (hypertension) Surgical History History of appendectomy Family History Family History (Updated 12/06/22 @ 16:21 by Arlen Zhang NP) Mother Diabetes mellitus Social History Social History Household Members: None Housing: House Alcohol intake: never Patient Tobacco Use Status: Current everyday Tobacco user Tobacco use type: Cigarette Substance Use Type: Marijuana Do you have a plan to hurt others: No Plan service: No Physical Exam Vital Signs: Vital Signs: Last Vital Signs Pulse 85 11/14/23 22:49 Resp 16 11/14/23 22:49 BP 168/88 H 11/14/23 22:49 Pulse Ox 98 11/14/23 22:49 O2 Del Method Room Air 11/14/23 22:49 BMI result Body Mass Index 25.0 Appearance: Alert. Oriented X3. No acute distress. Eyes: PERRLA, No Nystagmus ENT: Pharynx normal. Oral Mucosa moist Neck: Normal inspection. Neck supple. CVS: Normal heart rate and rhythm. Pulses normal. Respiratory: No respiratory distress. Equal air entry bilateral, no wheezing/rales/rhonchi no murmur rub or gallop Abdomen: Soft and nontender. Bowel sounds are present, no mass palpable, no CVA tenderness Skin: Skin warm and dry. Normal skin color. Normal skin turgor. Extremities: No lower extremity edema. No calf tenderness Neuro: Oriented X 3. No motor deficit. Medical Decision Making Medical Decision Making [facility] Narrative: Patient has atypical chest pain ambulatory in the ED shouting with full sentences no ischemic changes in the EKG normal troponin had a recent echo which was also normal will discharge patient back to police custody Differential Diagnosis Differential Diagnoses: The differential diagnosis associated with the presentation includes ACS/chest wall pain/anxiety Lab Data [facility] Lab Attestation statement: I reviewed the patient's lab results. 11/14/23 22:46 11/14/23 22:46 Labs: Lab Results 11/14/23 Range/Units 22:46 WBC 8.5 (4.8-10.8) X10*3/uL RBC 4.01 L (4.60-5.80) X10*6/uL Hgb 12.6 L (14.0-18.0) g/dl Hct 34.9 L (42.0-52.0) % MCV 87.0 (80.0-98.0) fL MCH 31.4 (27.0-33.0) pg MCHC 36.1 H (31.0-36.0) g/dl RDW 13.7 (11.0-16.0) % Plt Count 208 (160-400) X10*3/uL MPV 9.9 (9.4-12.4) fL Immature Gran % (Auto) 0.2 (0.0-0.4) % Neut % (Auto) 68.9 (45-73) % Lymph % (Auto) 24.5 (20-40) % Kingfisher % (Auto) 5.2 (2-11) % Eos % (Auto) 0.6 (0-4) % Baso % (Auto) 0.6 (0-2) % Lymph # (Auto) 2.1 (1.2-4.9) X10*3/uL Kingfisher # (Auto) 0.4 (0.1-1.2) X10*3/uL Eos # (Auto) 0.1 (0.0-0.4) X10*3/uL Baso # (Auto) 0.1 (0.0-0.2) X10*3/uL Abs Immat Gran (auto) 0.02 (0.00-0.03) X10*3/uL Absolute Neuts (auto) 5.9 (2.0-8.3) x10*3/uL Absolute Nucleated RBC 0.000 (0.0-0.012) X10*3/uL Nucleated RBC % (auto) 0.0 (0.0-0.2) /100WBC Sodium 144 (135-145) mmol/L Potassium 4.0 (3.3-5.1) mmol/L Chloride 114 H (96-108) mmol/L Carbon Dioxide 21 L (22-29) mmol/L Anion Gap 13 (12-20) BUN 12 (9-16) mg/dL Creatinine 0.85 (0.5-1.4) mg/dL Estim Creat Clear Calc 106.3 Estimated GFR > 60 Random Glucose 89 (60-115) mg/dL Calcium 9.1 (8.4-10.2) mg/dL Total Bilirubin 0.4 (0.0-1.0) mg/dL AST 16 (5-37) U/L ALT 14 (0-40) U/L Alkaline Phosphatase 58 (39-117) U/L Troponin I High Sens 3.4 (<3.5-35.0) ng/L Total Protein 7.2 (6.5-8.0) g/dL Albumin 4.4 (3.5-5.0) g/dL Independent Interpretation I performed an independent interpretation of an: EKG Interpretation: Normal sinus rhythm heart rate 80 beats per minute LVH no acute STT wave changes no acute ischemia Discharge Plan Discharge Clinical Impression: Atypical chest pain Patient Disposition: Home, Self-Care Instructions: Chest Pain (ED) Additional Instructions: Take ibuprofen for pain and 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
[2023-11-14 22:52] LABS: Basophils Absolute Auto 0.1 X10*3/uL (0.0-0.2); Basophils Percent Auto 0.6 % (0-2); Eosinophils Absolute Auto 0.1 X10*3/uL (0.0-0.4); Eosinophils Percent Auto 0.6 % (0-4); Hematocrit 34.9 % (42.0-52.0); Hemoglobin 12.6 g/dl (14.0-18.0); Imm Gran Abs Auto 0.02 X10*3/uL (0.00-0.03); Imm Gran Pct Auto 0.2 % (0.0-0.4); Lymphocytes Absolute Auto 2.1 X10*3/uL (1.2-4.9); Lymphocytes Percent Auto 24.5 % (20-40); Mean Corpuscular HGB Conc 36.1 g/dl (31.0-36.0); Mean Corpuscular Hemoglobin 31.4 pg (27.0-33.0); Mean Platelet Volume 9.9 fL (9.4-12.4); Monocytes Absolute Auto 0.4 X10*3/uL (0.1-1.2); Monocytes Percent Auto 5.2 % (2-11); Neutrophils Absolute Auto 5.9 x10*3/uL (2.0-8.3); Neutrophils Percent Auto 68.9 % (45-73); Platelet Count 208 X10*3/uL (160-400); Red Blood Count 4.01 X10*6/uL (4.60-5.80); Red Cell Distribution Width 13.7 % (11.0-16.0); White Blood Count 8.5 X10*3/uL (4.8-10.8)
[2023-11-14 23:10] LABS: Troponin-I High Sensitivity 3.4 ng/L (<3.5-35.0)
[2023-11-14 23:13] LABS: Alanine Aminotransferase 14 U/L (0-40); Albumin Level 4.4 g/dL (3.5-5.0); Alkaline Phosphatase 58 U/L (39-117); Anion Gap 13 (12-20); Aspartate Amino Transferase 16 U/L (5-37); Bilirubin Total 0.4 mg/dL (0.0-1.0); Blood Urea Nitrogen 12 mg/dL (9-16); Calcium 9.1 mg/dL (8.4-10.2); Carbon Dioxide 21 mmol/L (22-29); Chloride 114 mmol/L (96-108); Creatinine Clr Calc Pharmacy 106.3; Estimated Glomerular Filt Rate > 60; Glucose Random 89 mg/dL (60-115); Sodium 144 mmol/L (135-145); Total Protein 7.2 g/dL (6.5-8.0)
[2023-11-14 23:31] VITALS: BP 0/0; PULSE 0; RESP 0; TEMP -17.7; TEMP 0; O2SAT 0
--- NOTE | 2023-11-14 23:32 | PC.NURSE ---
Pt arrived via ems in police custody with reports of cp. PT threatening EMS, police and ED staff. Labs drawn, EKG completed. PT continuing to call tw and other staff derogatory names, threatening to slap staff etc. Provider at [facility] provided report from recent visit to clarify pts report that he was told that he had fluid around his heart. Per the radiology report there was no such indiciation. PT began aggressive again and demanded to leave. Refused assessments and discharge vitals.
== END 2023-11-14 23:55 | disposition home or self-care (01) ==
LOC: HO.ED 23:31
PROVIDERS: Emergency Provider Internal Medicine
DX: R07.89 Other chest pain (principal); Z79.899 Other long term (current) drug therapy
CPT/HCPCS: 36415; 80053; 84484; 85025; 93005; 99283

== ENCOUNTER → 2023-11-14 22:38 | Outpatient (BNV) | payer MEDICARE, MEDICAID, SELFPAY | PROVIDERS: Emergency Provider Internal Medicine; Visit Provider Internal Medicine Cardiovascular Disease | DX: R07.9 Chest pain, unspecified (principal); R94.31 Abnormal electrocardiogram [ECG] [EKG] | CPT/HCPCS: 93010 ==

== ENCOUNTER 2024-09-18 09:59 | Outpatient (REF) | payer MEDICARE, MEDICAID, SELFPAY ==
--- OUTSIDE RECORDS SUMMARY | 2024-09-18 11:21 | XMS_ITS | Encounter Summary ---
Author Organization [employer] Address [address] [place] [address] Care Team Providers Care Body Stylist Name Role Phone Jackelin Louise MD Primary Care Provide r Encounter Details Date Type Department Care Team (Latest Contact Info) Description 09/14/2024 Travel Social History Tobacco Use Types Packs/Day Years Used Date Smoking Tobacco: Every Day Cigarettes 0.3 50 Passive Smoke Exposure: Current Smokeless Tobacco: Never Depression Answer Date Recorded Patient Health Questionnaire-9 Score 21 05/12/2023 Patient Health Questionnaire-9 Score 21 05/12/2023 Last PHQ-9: Questionnaire Data Not on file 1 07/13/2022 Housing Stability Answer Date Recorded What is your housing situation today? I have kenia felix 05/05/[address] you li ve. Do you have problems with any of the following? None of the above 05/05/2023 Food Insecurity Answer Date Recorded Within the past 12 months, y ou worried that your food would run out before you got money to buy more: Never True 05/12/2023 Within the past 12 months,th e food you bought just didn't last and you didn't have enough money to get more: Never True Transportation Answer Date Recorded In the past 12 months, has l ack of transportation kept you from medical appts, meetings, work or from getting things needed for daily living? No 05/05/2023 Utilities Answer Date Recorded In the past 12 months, has t he electric, gas, oil or water company threatened to shut off services in your home? No 05/05/2023 Depression Answer Date Recorded Patient Health Questionnaire-2 Score 6 05/12/2023 Sex and Gender Information Value Date Recorded Sex Assigned at Male 03/29/2022 10:39 AM EDT Legal Sex Male 3:01 PM EDT Gender Identity Choose not to disclose 10:39 AM EDT Sexual Orientation Choose not to disclose 2021 10:39 AM EDT documented as of this encounter Plan of Treatment Upcoming Encounters Date Type Department Care Team (Late st Contact Info) Description 10/05/2024 1:30 PM EDT Office Visit [facility] [address] [place] [phone] Pavel Pimentel MD [address] [place] [phone] 11/07/2024 11:15 AM EDT Office Visit [facility] [address] [place] [address] [phone] Jackelin Louise MD [address] [place] [phone] documented as of this encounter Visit Diagnoses Not on filedocumented in this encounter Additional Health Concerns Assessment Noted Time PHQ-9 Depression Total Score: 21 023 9:40 AM EST documented as of this encounter Care Teams Body Stylist Relationship Specialty Start Date End Date Jackelin Louise MD [address] [place] [address] [phone] PCP - General Internal Medicine 08/10/23 documented as of this encounter
--- OUTSIDE RECORDS SUMMARY | 2024-09-18 11:21 | XMS_ITS | Patient Health Record ---
Author Organization [facility] Address [address], [place] [id number] Care Team Providers Care Manager Heavy Equipment Name Role Phone [facility], Medical Services Primary Care Provider Glenny Phan Unavailable Allergies No Known Allergies Reason For Referral No Information Medications Medication SIG (Take, Route, Frequency, Duration) Notes Start Date End Date Status Nicoderm C-Q 21 mg/24 hr 1 PATCH transde rmally once a day for 28 days 12/18/2018 Active Nicorette 4 mg 1 GUM chewed every o ne to two hours PRN for 28 days 12/18/2018 Active albuterol 90 mcg/inh 2 puff(s) inhaled 4 times a day PRN wheezing or shortness of breath for 30 day(s) 12/18/2018 Active Flovent HFA CFC free 110 mcg/inh 2 puffs inhaled 2 times a day EVERY day. This is a preventive asthma medicine for 30 day(s) 12/18/2018 Active Latuda 40 mg 1 tab(s) orally once a day for 30 day(s) 12/22/2018 Active mirtazapine 15 mg 1 tab(s) orally once a day (at bedtime) for 30 day(s) 12/18/2018 Activ e Tegretol 200 mg 1 tab(s) orally bid for 30 day(s) 03/01/2019 Active OLANZapine 10 mg 1 tab(s) orally qhs for 30 day(s) 03/01/2019 Active amLODIPine 10 mg 1 tab(s) orally once a day for 30 day(s) 01/01/2019 Active naproxen 500 mg 1 tab(s) orally bid with food for 28 day(s) Active Immunizations Vaccine Route Administration Date Status Comme nts Hepatitis A Unknown 06/02/2008 Administered Hepatitis A Unknown 03/03/2018 Administered Hepatitis B (20 or more) Unknown 06/22/2008 Administered Influenza Unknown 03/03/2018 Administered Menigococcal MCV4 (<55) Unknown 01/19/2017 Administered Hepatitis B (20 or more) IM Intramuscular 01/01/2019 Administered [id number] Moderna Covid-19 Vaccine Administration - First Dose (Single Dose 100MCG/0.5ML 1ST) IM Intramuscular 07/03/2020 Administered foh, DOSE #1 Moderna Covid-19 Vaccine Administration - Second Dose (Single Dose 100 MCG/0.5ML 2ND) Unknown 07/31/2020 Administered ?BHN #2 COVID Vaccine Moderna Covid-19 Vaccine Administration - Second Dose (Single Dose 100 MCG/0.5ML 2ND) Unknown 04/15/2021 Administered Moderna Covid-19 Vaccine Administration - First Dose (Single Dose 100MCG/0.5ML 1ST) Unknown 08/12/2020 Administered Social History Tobacco Use: Social History Observation Description Date Details (start date - stop date) Current Smoker NA - NA Tobacco Use Assessment MU Question Answer Notes What is your current smoking status? current smo ker How often do you smoke? every day How many cigarettes a day do you smoke? 6-10 Patient counseled on the jake gers of tobacco use and advised to quit: 03/01/2019 Additional Findings: Tobacco User Chain smoker Problems Problem Type SNOMED Code ICD Code Onset Dates Problem Status W/U Status Risk Notes Problem Information temporarily unavailable Chronic viral hepatitis C (B18.2) Active confirmed Problem Information temporarily unavailable Overweight (E66.3) Active confirmed Problem Information temporarily unavailable Nicotine dependence, cigarettes, uncomplicated (F17.210) Active confirmed Problem Information temporarily unavailable Other psychoactive substance abuse, 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) Active confirmed Problem Information temporarily unavailable Schizophrenia, unspecified (F20.9) Active confirmed Problem Information temporarily unavailable Bipolar disorder, unspecified (F31.9) Active confirmed Problem Information temporarily unavailable Insomnia due to other mental disorder (F51.05) Active confirmed Problem Information temporarily unavailable Essential (primary) hypertension (I10) Active confirmed Problem Information temporarily unavailable Old myocardial infarction (I25.2) Active confirmed Problem Information temporarily unavailable Moderate persistent asthma, uncomplicated (J45.40) Active confirmed Problem Information temporarily unavailable 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 Problem Information temporarily unavailable Hallux valgus (acquired), right foot (M20.11) Active confirmed Problem Information temporarily unavailable Dysphagia, unspecified (R13.10) Active confirmed Problem Information temporarily unavailable Encounter for screening for malignant neoplasm of colon (Z12.11) Active confirmed Problem Information temporarily unavailable Encounter for screening for malignant neoplasm of prostate (Z12.5) Active confirmed Problem Information temporarily unavailable Prediabetes (R73.03) Active confirmed Problem Information temporarily unavailable Sheltered homelessness (Z59.01) Active confirmed Plan Of Treatment Pending Test Test Name Order Date LIVER FIBROSIS PANEL 12/18/2018 LIVER FIBROSIS PANEL 01/01/2019 HEP C VIRAL RNA GENOTYPE 01/01/2019 PT/INR 01/01/2019 CR Chest Routine 2 Views 01/01/2019 Future Test Test Name Order Date CBC 09/21/2020 CHLAMYDIA / GC DNA W RFLX 09/21/2020 COMPREHENSIVE METABOLIC PANEL 09/21/2020 LIVER FIBROSIS PANEL 09/21/2020 GLYCOHEMOGLOBIN PROFILE 09/21/2020 HCV VIRAL LOAD 09/21/2020 HEP C VIRAL RNA GENOTYPE 09/21/2020 PROSTATIC SPECIFIC ANTIGEN SCR PT/INR 09/21/2020 TREPONEMAL AB 09/21/2020 TSH CASCADE 09/21/2020 URINALYSIS 09/21/2020 MICROALB/CREAT RATIO, RANDOM 09/21/2020 Insurance Providers Payer Name Payer Address Payer Phone Subscriber Number Group Number Insured Name Patient Relationship to Insured Coverage Start Date Coverage End Date [place] Medicaid C3 [address] [place], [place] [id number] Mendoza Webster Self - patient is the insured 1 Medical (General) History Medical History History ICD Code [place] age 43 Substance use : tobacco, All except Hero in and pills. Asthma RT hand: boutonniere deformity: NEOS Rt great toe pain: Rt hallux valgus: LEONEL S Surgical History Surgery Date(Month/Year) Appendix in [place] 1979 Hospitalization History Reason Date(Month/Year) Heart Attack was in [facility] 2003 [place] detoxes 91,93,94,96, [place] 1999 L [facility] had [facility] times in hospital for mental illness 2014 Prov 1 week 02/12/19
--- OUTSIDE RECORDS SUMMARY | 2024-09-18 11:22 | XMS_ITS | Clinical Summary ---
Author Organization [employer] Address [address] [facility] [address] [place] [address] Care Team Providers Care Product Marketing Intern Name Role Phone Jackelin Louise MD Primary Care Provide r Allergies Active Allergy Reactions Criticality Noted Date Comments Pork Allergy 05/12/2023 Medications * This document contains information received from the source organization and may not represent a complete record from that organization. emtricitabine-te nofovir AF (Descovy) 200-25 MG tabletIndication s:Preventive measure Take 1 tablet by mouth Once per day. 30 tablet 2 09/12/19 25 Active nicotine (Nicoderm CQ) 21 MG/24HR patchIndications :Cigarette nicotine dependence without complication Place 1 patch on the skin 1 (one) time each day at the same time. 30 patch 04/05/20 23 025 Discontinued amLODIPine (Norvasc) 5 MG tabletIndication s:Primary hypertension Take 1 tablet (5 mg) by mouth in the morning. 30 tablet 2 04/05/20 23 025 Discontinued nicotine (Nicoderm CQ) 14 MG/24HR patchIndications :Cigarette nicotine dependence without complication Place 1 patch on the skin 1 (one) time each day at the same time. 30 patch 2 05/12/20 23 025 Discontinued mirtazapine (Remeron) 15 MG tabletIndication s:Depression with anxiety Take 1 tablet (15 mg) by mouth at bedtime. 30 tablet 05/12/20 23 025 Discontinued nicotine (Nicoderm CQ) 14 MG/24HR patch Place 1 patch on the skin 1 (one) time each day at the same time. 42 patch 08/10/19 24 025 Discontinued nicotine (Nicoderm CQ) 7 MG/24HR patch Place 1 patch on the skin 1 (one) time each day at the same time. 14 patch 08/10/19 025 Discontinued nicotine polacrilex (Commit) 4 MG lozenge Dissolve 1 lozenge (4 mg) in the mouth every 2 (two) hours if needed for smoking cessation. 100 lozenge 08/10/19 025 Discontinued lisinopril (Prinivil) 20 MG tabletIndication s:Primary hypertension Take 1 tablet (20 mg) by mouth in the morning. 30 tablet 11 09/02/19 025 Discontinued sildenafil (Viagra) 25 MG tabletIndication s:Other male erectile dysfunction Take 1 tablet (25 mg) by mouth if needed each day for erectile dysfunction . 10 tablet 09/02/19 025 Discontinued emtricitabine-te nofovir AF (Descovy) 200-25 MG tabletIndication s:Preventive measure Take 1 tablet by mouth Once per day. 30 tablet 2 02/21/20 025 Discontinued(Re order (will not trigger notification to Pharmacy)) Active Problems Problem Noted Date Diagnosed Date Preventive measure 02/21/2024 Low TSH level 09/02/2023 Assessment & Plan (09/02/2023 5:16 PM EDT): TSH will be repeated Encounter for preventive care 09/02/2023 Assessment & Plan (09/02/2023 5:16 PM EDT): See HPI Other male erectile dysfunction 09/02/2023 Assessment & Plan (09/02/2023 5:16 PM EDT): I will start sildenafil prescription 25mg PRN Screening for lung cancer 05/13/2023 Assessment & Plan (05/13/2023 9:40 AM EST): Patient qualifies for low dose CT, order is submitted 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 Initial goal of 30 min walk 3-5x/week. Increase as tolerated. - low-sodium diet (goal: <2g/day) and heart healthy diet such as DASH to reduce BP and prevent ASCVD. - Home BP monitoring 1-2 x day with goal of <140/90. - Seek immediate medical attention for chest pain, palpitations, SOB, syncope, or sudden changes in mental status. - Do not change or discontinue current prescriptions without first consulting health care provider Assessment & Plan (05/13/2023 9:38 AM EST): - Aerobic exercise to reduce BP. Initial goal of 30 min walk 3-5x/week. Increase as tolerated. - low-sodium diet (goal: <2g/day) and heart healthy diet such as DASH to reduce BP and prevent ASCVD. - Home BP monitoring 1-2 x day with goal of <140/90. - Seek immediate medical attention for chest pain, palpitations, SOB, syncope, or sudden changes in mental status. - Do not change or discontinue current prescriptions without first consulting health care provider -I advise to take his blood pressure medication every day -I will talk to him on next appointment about starting high intensity statin Assessment & Plan (04/05/2023 2:31 PM EST): Restart amlodipine 5mg and FU BP with RN in 2w. FU w new PCP in 1-2m Order labs Counseled to avoid drugs, specially cocaine and nicotine. Coronary artery disease invo lving paimiut heart without angina pectoris 04/05/2023 Assessment & Plan (04/05/2023 2:32 PM EST): He doesn't seem to have angina, unclear if some of the sxs are masked by drug use? Opiates? Start asa 81 mg and order labs Counseled to quit smoking and use of drugs FU with PCP Hx of appendectomy 04/05/2023 Alcoholism 04/05/2023 Assessment & Plan (04/05/2023 7:28 PM EST): Hx ETOH withdrawal seizures> 10y ago. No known DT or ICU admission. Counseled to continue cutting down Refer to AUD program Cocaine abuse 04/05/2023 Assessment & Plan (04/05/2023 2:34 PM EST): Counseled to quit, I gave him infor re [place] meetings Refer to AUD program Opiate abuse, continuous 04/05/2023 Assessment & Plan (04/05/2023 2:35 PM EST): Apparently started recently(?). Had overdose last week Counseled to avoid using or buying drugs in the street Rx narcan Chronic hepatitis C without hepatic coma 023 Assessment & Plan (04/05/2023 7:30 PM EST): Apparently treated, unclear most recent VL. Order labs and fu with PCP Psychosis 04/05/2023 Assessment & Plan (04/05/2023 7:28 PM EST): Hx HI back on 01/2021, seen overnight on [facility]. Unclear if related to substance abuse or mood disorder? Osteoarthritis of cervical spine 04/05/2023 Overview (04/05/2023): CT scan [facility]spine on 2020 at [facility] Severe major depression 02/25/2021 04/05/20 23 Overview (04/05/2023): Last Assessment & Plan: As per psychiatry team Assessment & Plan (04/05/2023 7:27 PM EST): It seems that he may have had a psychotic event/HI?psyhcotic depression? Bipolar? Counseled to avoid using drugs Agreed to team referral Cigarette nicotine dependence without complicati on 04/14/2020 04/05/2023 Overview (04/05/2023): Last Assessment & Plan: Pt. counseled about his smoking, does not want to quit at this time. Risks of smoking reviewed with patient. Advised regarding various cessation methods. Assessment & Plan (05/13/2023 9:39 AM EST): Counseling done Nicotine patches prescribed Assessment & Plan (04/05/2023 2:32 PM EST): Counseled to quit, he wants to start nicotine patch Rx nicotine patch 21mg x 6w and fu with PCP Encounters Date Type Department Care Team Description 09/14/2024 1:30 PM EDT Office Visit [facility] [address] [place] [phone] Pavel Pimentel MD Severe alcohol dependence (CMS/HCC) (Primary Dx); Cocaine use disorder (CMS/HCC) 09/14/2024 Travel 09/12/2024 Orders Only [facility] [address] [place] [id number] Josette Todd RN 09/11/2024 Orders Only [facility] [address] [place] [phone] Binta Mccullough ANP Preventive measure 07/17/2024 Telephone [facility] [address] [place] [phone] Jackelin Louise MD MAY RECALL from Last 3 Months Immunizations Name Administration Dates Next Due Hep A, Adult 03/03/2018 Hep A, Unspecified 06/12/2008 Hep B, Unspecified 06/12/2008 Influenza Injectable Quadriv alant Preservative Free IIV4 MDCK 05/06/2021 Influenza injectable quadriv alent IIV4 with preservative 03/03/2018 Influenza injectable quadriv alent preservative free 04/05/2023,03/01/2020 Influenza, IIV3, injectable 02/01/2017 Influenza, Unspecified 01/18/2018,04/14/2012, Meningococcal MCV4P ACYW-135 08/31/2017 Moderna Covid-19 Vaccine 12+ 04/15/2021,08/13/19,07/31/2020 Pneumococcal Conjugate PCV 20 09/02/2023 Pneumococcal Polysaccharide PPSV23 02/03/2018 Td (adult), unspecified 07/23/2008 Tdap 12/31/2021,10/29/2019,01/19/2017 Social History Tobacco Use Types Packs/Day Years Used Date Smoking Tobacco: Every Day Cigarettes 0.3 50 Passive Smoke Exposure: Current Smokeless Tobacco: Never Tobacco Cessation:Ready to Q uit: Not Asked; Counseling Given: Not Answered Depression Answer Date Recorded Patient Health Questionnaire-9 [...] not to disclose 2021 10:39 AM EDT Last Filed Vital Signs Vital Sign Reading Time Taken Comments Blood Pressure 136/83 09/14/2024 1:21 PM EDT Pulse 77 09/14/2024 1:21 PM EDT Temperature 36.4 ??C (97.5 ??F) 09/14/2024 1:21 PM ED T Respiratory Rate 16 09/14/2024 1:21 PM EDT Oxygen Saturation 99% 11/09/2023 9:59 AM EDT Inhaled Oxygen Concentration - - Weight 86.8 kg (191 lb 6.4 oz) 11/09/2023 9:59 A M EDT Height 193 cm (6' 4 ) 11/09/2023 9:59 AM EDT Body Mass Index 23.3 11/09/2023 9:59 AM EDT Plan of Treatment Upcoming Encounters Date Type Department Care Team (Late st Contact Info) Description 10/05/2024 1:30 PM EDT Office Visit [address] [phone] Pavel Pimentel MD [address] [place] [phone] 11/07/2024 11:15 AM EDT Office Visit [address] [phone] Jackelin Louise MD [address] [place] [phone] Health Maintenance Due Date Last Done Comments CT Colonography 1958 Colonoscopy 1958 Colorectal Cancer Screening 1958 FIT DNA/Cologuard 1958 FIT 1958 FOBT 1958 Sigmoidoscopy 1958 Alcohol/Substance Use Screening 1970 Zoster Vaccines (1 of 2) 2008 RSV Patients and Patients Aged 60 years or older (1 - Risk 60-74 years 1-dose series) 2018 Hepatitis B Vaccines (3 of 3 - Risk 3-dose series) 02/26/2019 01/01/2019, 06/22/2008, 06/12/2008 COVID-19 Vaccine ( season) 2024 04/15/2021, 08/12/2020, 07/31/2020, Additional history exists Influenza Vaccine (#1) 2024 , 05/06/2021, 03/01/2020, Additional history exists Depression Screening 05/12/2024 05/12/2023, 05/12/20 SDOH Screening 05/12/2024 05/12/2023 Tobacco Screening 09/11/2025 09/11/2024 Lipid Panel 04/27/2028 04/27/2023 DTaP/Tdap/Td Vaccines (4 - Td or Tdap) 01/01/2032 12/31/2021, 10/29/2019, 01/19/2017, Additional history exists Meningococcal Vaccine Aged Out 08/31/2017, 017 No longer eligible based on patient's age to complete this topic Hepatitis A Vaccines Completed 03/03/2018, 06/12/2008, 06/02/2008 Pneumococcal Vaccine: 50+ Years Completed 09/02/2023, 02/03/2018 HIB Vaccines Aged Out No longer eligi ble based on patient's age to complete this topic HPV Vaccines Aged Out No longer eligi ble based on patient's age to complete this topic IPV Vaccines Aged Out No longer eligi ble based on patient's age to complete this topic RSV under 20 months Aged Out No longe r eligible based on patient's age to complete this topic Rotavirus Vaccines Aged Out No longer eligible based on patient's age to complete this topic Procedures Procedure Name Priority Date/Time Associated Diagnosis Comments POCT ALCOHOL BREATH TEST Routine 09/14/2024 1:27 PM EDT Severe alcohol dependence (CMS/HCC) POCT ORTEGA-14 URINE DRUG SCREEN Routine 09/14/2024 1:26 PM EDT Severe alcohol dependence (CMS/HCC) HIV ANTIBODY/ANTIGEN ([facility]) Routine 09/06/2024 HEPATITIS C ANTIBODY ([facility]) Routine 09/06/2024 SYPHILIS ABS ([facility]) Routine 09/06/2024 CHLAMYDIA/GONORRHEA - URINE ([place] [facility]) Routine 09/06/2024 CHLAMYDIA/GONORRHEA THROAT SWAB ([place] D[facility]) Routine 09/06/2024 LIPID PANEL WITH REFLEX TO DIRECT LDL Routine 04/27/2023 8:03 AM EST Coronary artery disease involving paimiut heart without angina pectoris, unspecified vessel or lesion type from Last 3 Months or Most Recently Relevant to Health Maintenance Results * POCT alcohol breath test manually resulted (09/14/2024 1:27 PM EDT) Breath Alcohol 0.04 Breath 09/14/2024 1:27 PM EDT Pavel Pimentel MD POINT OF CARE TEST ENTER/EDIT OR DERABLES Final Result * POCT ORTEGA-14 Urine Drug Screen (09/14/2024 1:26 PM EDT) THC Positive Cocaine Screen, Urine Negative Opiate Screen, Urine Negative Methamphetamine Screen Urine Negative Amphetamine Screen, Urine Negative Benzodiazepines Screen, Urine Negative Barbiturate Screen, Urine Negative Methadone Screen, Urine Negative Buprenophine Screen, Urine Negative TCA, Urine Negative MDMA Urine Negative ng/mL Oxycodone Screen, Urine Negative Phencyclidine (PCP), Urine Negative Fentanyl, Urine Negative Urine Urine specimen obtained by clean catch procedure / Unknown 09/14/2024 1:26 PM EDT Pavel Pimentel MD POINT OF CARE TEST ENTER/EDIT OR DERABLES Final Result * Chlamydia/Gonorrhea Throat Swab ([place] [facility]) (09/06/2024) Chlamydia Throat Swab Negative Gonorrhea Throat Swab Negative Swab 09/06/2024 [facility] Provider LAB MICROBIOLOGY - GENERA L ORDERABLES Edited Result - Final * Chlamydia/Gonorrhea, Urine ([place] [facility]) (09/06/2024) Pathologist [facility] Chlamydia, Urine Negative Negative, Indeterminate, None Detected, Invalid, Specimen unsatisfactory for evaluation, Weakly Positive Gonorrhea, Urine Negative Negative, Indeterminate, None Detected, Invalid, Specimen unsatisfactory for evaluation, Weakly Positive Urine 09/06/2024 Result [facility] MD LAB URINE ORDERABLES Narda l Result * Syphilis Antibodies (DPH) (09/06/2024) [facility] Syphilis Abs Nonreactive Borderline, Nonreactive, Weakly Reactive, Inconclusive, Specimen unsatisfactory for evaluation Blood Venous blood specimen / Unknown 09/06/2024 Result [facility] MD LAB BLOOD ORDERABLES Narda l Result * Hepatitis C Antibody ([facility]) (09/06/2024) [facility] Hepatitis C Ab Nonreactive Blood 09/06/2024 Result [facility] MD LAB BLOOD ORDERABLES Narda l Result * HIV Ab/Ag ([facility]) (09/06/2024) [facility] HIV Ag/Ab Nonreactive Blood 09/06/2024 Result [facility] MD LAB BLOOD ORDERABLES Edit ed Result - Final * (ABNORMAL) Lipid Panel with Reflex to Direct LDL (04/27/2023 8:03 AM EST) [facility] Triglycerides 44 <150 mg/dL [facility] Comment:Desirable Triglyceri de: less than 150 mg/dLBorderline High Triglyceride 150-199 mg/dLHigh Triglyceride: 200-499 mg/dLVery High Triglyceride: greater than or equal to 5OO mg/dL Cholesterol 192 <200 mg/dL [facility] Comment:Desirable Cholestero l: less than 200 mg/dLBorderline High Cholesterol: 200-239 mg/dLHigh Cholesterol: greater than 239 mg/dL LDL Cholesterol Calculated 130(H) <100 mg/dL [facility] Comment:Desirable LDL: less than 100 mg/dLNear Optimal/Above Optimal LDL: 110- 129 mg/dLBorderline High LDL: 130-159 mg/dLHigh LDL: 160-189 mg/dLVery High LDL: greater than or equal to 190 mg/dL HDL Cholesterol 54 >40 mg/dL [facility] Comment:Desirable HDL: great er than 40 mg/dL Note: This HDL assay may give artificially low results in patients with liver disease. Blood 04/27/2023 8:03 AM EST 04/27/2023 11:15 AM EST Ally Donald MD LAB BLOOD ORDERABLES Fin al Result [facility] [address] [place] [address] [phone] from Last 3 Months or Most Recently Relevant to Health Maintenance Insurance [place] [id number] [facility] MEDICARE Care Teams Product Marketing Intern Relationship Specialty Start Date End Date Jackelin Louise MD [address] [place] [phone] PCP - General Internal Medicine 08/10/23
--- OUTSIDE RECORDS SUMMARY | 2024-09-18 11:22 | XMS_ITS | Clinical Summary ---
Author Organization [facility] Address [address] [place] [address] Care Team Providers Care Assistant Prosecuting Attorney Name Role Phone Unavailable Primary Care Provider Unavailabl e Social History Tobacco Use Types Packs/Day Years Used Date Smoking Tobacco: Never Assessed Sex and Gender Information Value Date Recorded Sex Assigned at Not on file Legal Sex Male 10:06 AM EST Gender Identity Not on file Sexual Orientation Not on file Obstetrics History Last Filed Vital Signs Vital Sign Reading Time Taken Comments Blood Pressure - - Pulse - - Temperature - - Respiratory Rate - - Oxygen Saturation - - Inhaled Oxygen Concentration - - Weight 83.9 kg (185 lb) 11/10/2023 2:03 PM EDT Height 190.5 cm (6' 3 ) 11/10/2023 2:03 PM EDT Body Mass Index 23.12 11/10/2023 2:03 PM EDT Plan of Treatment Health Maintenance Due Date Last Done Comments DTaP,Tdap,and Td Vaccines (1 - Tdap) 1977 Pneumococcal Vaccine: 50+ Ye ars (1 of 1 - PCV) 2008 Zoster Vaccines (1 of 2) 2008 Abdominal Aortic Aneurysm (A AA) Screen 05/02/2022 Cholesterol Screening (Lipid Panel) 05/02/2022 Colorectal Cancer Screening: Colonoscopy 05/02/2022 Depression Screening 05/02/2022 Hepatitis C Screening 05/02/2022 Social Influencers of Health Screening 05/02/2022 Falls Risk Assessment 2023 COVID-19 Vaccine ( - 2023-2 5 season) 2024 Influenza Vaccine (Season Ended) 2025 RSV Immunization Adult Patie nts (1 - 1-dose 75+ series) 2033 HIB Vaccines Aged Out No longer eligi ble based on patient's age to complete this topic HPV Vaccines Aged Out No longer eligi ble based on patient's age to complete this topic Hepatitis A Vaccines Aged Out No long er eligible based on patient's age to complete this topic Hepatitis B Vaccines Aged Out No long er eligible based on patient's age to complete this topic IPV Vaccines Aged Out No longer eligi ble based on patient's age to complete this topic MMR Vaccines Aged Out No longer eligi ble based on patient's age to complete this topic Meningococcal ACWY Vaccine Aged Out N o longer eligible based on patient's age to complete this topic Meningococcal B Vaccine Aged Out No l onger eligible based on patient's age to complete this topic RSV Immunization Patients Un dorian 20 months Aged Out No longer eligible b ased on patient's age to complete this topic Varicella Vaccines Aged Out No longer eligible based on patient's age to complete this topic Advance Directives Documents on File Type Date Recorded 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
--- OUTSIDE RECORDS SUMMARY | 2024-09-18 11:22 | XMS_ITS | Encounter Summary ---
Author Organization [employer] Address [address] [facility] [address] [place] [address] Care Team Providers Care Metal Control Worker Name Role Phone Jackelin Louise MD Primary Care Provide r Reason for Visit * Reason Comments AUD NEW PT Encounter Details Date Type Department Care Team ([facility] st Contact Info) Description 09/14/2024 1:30 PM EDT Office Visit [facility] MED[facility]INE [address] [place] [address] Pavel Pimentel MD [address] [place] [address] Severe alcohol dependence (CMS/HCC) (Primary Dx); Cocaine use disorder (CMS/HCC) Social History Tobacco Use Types Packs/Day Years [...] AM EDT documented as of this encounter Last Filed Vital Signs Vital Sign Reading Time Taken Comments Blood Pressure 136/83 09/14/2024 1:21 PM EDT Pulse 77 09/14/2024 1:21 PM EDT Temperature 36.4 ??C (97.5 ??F) 09/14/2024 1:21 PM ED T Respiratory Rate 16 09/14/2024 1:21 PM EDT Oxygen Saturation - - Inhaled Oxygen Concentration - - Weight - - Height - - Body Mass Index - - documented in this encounter Progress Notes * Pavel Pimentel MD - 09/14/2024 1:30 PM EDT AUD PHYSICIAN INTAKE 09/14/2024 UTOX: POS THC ONLY Breathalyzer: 0.04 DSM-5 AUD Score: 11 (severe) Patient with AUD/CUD presents to discuss his alcohol and cocaine use. Would like to start MAT for his alcohol use. Long history of AUD (first drink at age 8; problematic drinking at age 38). 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 He started drinking daily with his co-workers back then. Also smokes crack cocaine (last use was 2 weeks ago). Last alcohol use was this AM (1 beer). Typically consumes 1-2 pints of whiskey and 1-1.5 cases of beer. Denies any issues with opiates. Typical withdrawal symptoms include fatigue, anhedonia, and body ache. Denies having N/V/D or tremors. History of inpatient detox x3 and residential rehab x2. Never had DT, but questionable history of seizure (while sleeping) with alcohol withdrawal. Not on any anti-epileptic medications. Current tobacco use. Would like to defer tobacco discussion until future visits (he was in a hurry to go to his foot surgery consultation). Recent STI screening negative (09/06/2024). Had negative HIV, Hep C, syphilis, and GC/CT (throat/urine). Interestingly, he was previously diagnosed with Hep C, undergone treatment in 2019 at [facility] (states he took oral medication for 8 weeks). His recent Hep C Ab was non-reactive. He also had undetectable HCV RNA VL in 03/2023. Currently residing at [facility] housing. Previously he had 16 year sobriety, but relapsed at the time of his 's accidental in 2016. Currently on SSDI. Review of Systems Psychiatric/Behavioral: Negative for behavioral problems and dysphoric mood. The patient is not nervous/anxious. BP 136/83 (BP Location: Left arm, Patient Position: Sitting, BP Cuff Size: Adult) Pulse 77 Temp97.5 ??F (36.4 ??C) (Oral) Resp 16 Physical Exam Constitutional: Appearance: Normal appearance. Eyes: General: No scleral icterus. Conjunctiva/sclera: Conjunctivae normal. Pulmonary: Effort: Pulmonary effort is normal. Skin: Coloration: Skin is not jaundiced. Neurological: General: No focal deficit present. Mental Status: Mendoza is alert and oriented to person, place, and time. Psychiatric: Mood and Affect: Mood normal. Behavior: Behavior normal. Mendoza was seen today for aud new pt . Diagnoses and all orders for this visit: Severe alcohol dependence (CMS/HCC) (Primary) - POCT ORTEGA-14 Urine Drug Screen - POCT alcohol breath test manually resulted - Comprehensive Metabolic Panel; Future - CBC auto differential; Future - Prothrombin Time-INR; Future Cocaine use disorder (CMS/HCC) Patient with AUD/CUD presents for an intake Long history of AUD and cocaine use disorder Previously had several detox/rehab evaluations Previously had a long period of sobriety (1999 - 2015) Relapse in 2016 when his accidentally (fell down; patient was unfortunately incarcerated when this event occurred, thus unable to see his ) Admits to relapse upon his release from incarceration that year No current pending legal issues Has a stable housing through [facility] Questionable history of seizure episodes in a setting of alcohol withdrawal Discussed various pharmacologic and behavioral treatment options Interested in MAT with Naltrexone PO Potential adverse effects of the medication reviewed Will return next week for blood work Has an upcoming right bunion surgery (has a consultation today after this visit) Discussed recovery coaching services at [facility] Reviewed AA and GBAT group meetings here Recommended to check CMP, CBC, and INR/PT No history of jaundice, icterus, or ascites Discussed about the risks of alcohol withdrawal in a home setting, including DT, seizure and BH and AA support recommended Indications for ER and inpatient detox reviewed Advised to contact the clinic with any worsening symptoms Follow up in 3 weeks for re-evaluation Will send Rx for Naltrexone PO once he completes the lab work and no contraindicated confirmed Patient understands and agrees with the plan This information has been disclosed to you from records protected by federal confidentiality rules (42 CFR Part 2). The federal rules prohibit you from making any further disclosure of information inthis record that identifies a patient as having or having had a substance use disorder either directly, by reference to publicly available information, or through verification of such identification by another person unless further disclosure is expressly permitted by the written consent of the individual whose information is being disclosed or as otherwise permitted by (see2.3.1). The federal rules restrict any use of the information to investigate or prosecute with regard to a crime any patient with a substance use disorder, except as provided at 2.12??(5) and 2.65. documented in this encounter Plan of Treatment Upcoming Encounters Date Type Department Care Team (Late st Contact Info) Description 10/05/2024 1:30 PM EDT Office Visit [facility] MEDICINE [address] [place] [phone] Pavel Pimentel MD [address] [place] [phone] 11/07/2024 11:15 AM EDT Office Visit [facility] MED[facility]INE [address] [place] [phone] Jackelin Louise MD [address] [place] [address] Scheduled Orders Name Type Priority Associated Diagnoses Orde r Schedule Comprehensive Metabolic Panel Lab Routine Severe alcohol dependence (CMS/HCC) Expected: 09/14/2024 (Approximate), Expires: 09/14/2025 CBC auto differential Lab Routine Severe alcohol dependence (CMS/HCC) Expected: 09/14/2024 (Approximate), Expires: 09/14/2025 Prothrombin Time-INR Lab Routine Severe alcohol dependence (CMS/HCC) Expected: 09/14/2024, Expires: 09/14/2025 documented as of this encounter Procedures Procedure Name Priority Date/Time Associated Diagnosis Comments POCT ALCOHOL BREATH TEST Routine 09/14/2024 1:27 PM EDT Severe alcohol dependence (CMS/HCC) POCT ORTEGA-14 URINE DRUG SCREEN Routine 09/14/2024 1:26 PM EDT Severe alcohol dependence (CMS/HCC) documented in this encounter Results * POCT alcohol breath test manually resulted (09/14/2024 1:27 PM EDT) Breath Alcohol 0.04 Breath 09/14/2024 1:27 PM EDT us Pavel Pimentel MD POINT OF CARE TEST [...] procedure / Unknown 09/14/2024 1:26 PM EDT us Pavel Pimentel MD POINT OF CARE TEST ENTER/EDIT OR DERABLES Final Result documented in this encounter Visit Diagnoses Diagnosis Severe alcohol dependence (CMS/HCC)- Primary Cocaine use disorder (CMS/HCC) documented in this encounter Additional Health Concerns Assessment Noted Time PHQ-9 Depression Total Score: 21 05/12/ 023 9:40 AM EST documented as of this encounter Care Teams Metal Control Worker Relationship Specialty Start Date End Date Jackelin Louise MD [address] [place] [phone] PCP - General Internal Medicine 08/10/23 documented as of this encounter
--- OUTSIDE RECORDS SUMMARY | 2024-09-18 11:22 | XMS_ITS | Encounter Summary ---
Author Organization [employer] Address [address] [facility] [address] [place] [address] Care Team Providers Care Sales Warehouse Driver Name Role Phone Jackelin Louise MD Primary Care Provide r Encounter Details Date Type Department Care Team (Late st Contact Info) Description 11/16/2023 Orders Only [facility] MED[facility]INE [address] [place] [address] [facility] [address] [place] [address] Social History Tobacco Use Types Packs/Day Years [...] Description 10/05/2024 1:30 PM EDT Office Visit [facility] MEDICINE [address] [place] [phone] Pavel Pimentel MD [address] [place] [phone] 11/07/2024 11:15 AM EDT Office Visit [facility] MED[facility]INE [address] [place] [phone] Jackelin Louise MD [address] [place] [phone] documented as of this encounter Visit Diagnoses Not on filedocumented in this encounter Additional Health Concerns Assessment Noted Time PHQ-9 Depression Total Score: 21 023 9:40 AM EST documented as of this encounter Care Teams Sales Warehouse Driver Relationship Specialty Start Date End Date Jackelin Louise MD [address] [place] [phone] PCP - General Internal Medicine 08/10/23 documented as of this encounter
[2024-09-18 11:27] LABS: MANUAL DIFF FLAG NO
[2024-09-18 11:36] LABS: Basophils Percent Auto 0.5 % (0-2); Eosinophils Absolute Auto 0.1 X10*3/uL (0.0-0.4); Eosinophils Percent Auto 0.9 % (0-4); Hematocrit 41.6 % (42.0-52.0); Hemoglobin 14.3 g/dl (14.0-18.0); INTERNATIONAL NORM RATIO 0.9 (0.9-1.1); Imm Gran Abs Auto 0.02 X10*3/uL (0.00-0.03); Imm Gran Pct Auto 0.3 % (0.0-0.4); Lymphocytes Absolute Auto 2.3 X10*3/uL (1.2-4.9); Lymphocytes Percent Auto 29.3 % (20-40); Mean Corpuscular HGB Conc 34.4 g/dl (31.0-36.0); Mean Corpuscular Hemoglobin 30.8 pg (27.0-33.0); Mean Corpuscular Volume 89.5 fL (80.0-98.0); Mean Platelet Volume 11.1 fL (9.4-12.4); Monocytes Absolute Auto 0.5 X10*3/uL (0.1-1.2); Monocytes Percent Auto 6.1 % (2-11); Neutrophils Percent Auto 62.9 % (45-73); Platelet Count 209 X10*3/uL (160-400); Prothrombin Time 10.6 SEC (10.9-12.4); Red Blood Count 4.65 X10*6/uL (4.60-5.80); Red Cell Distribution Width 13.2 % (11.0-16.0); White Blood Count 7.9 X10*3/uL (4.8-10.8)
[2024-09-18 12:02] LABS: Alanine Aminotransferase 17 U/L (0-40); Albumin Level 4.6 g/dL (3.5-5.0); Alkaline Phosphatase 73 U/L (39-117); Anion Gap 10 (12-20); Aspartate Amino Transferase 19 U/L (5-37); Bilirubin Total 0.7 mg/dL (0.0-1.0); Blood Urea Nitrogen 22 mg/dL (9-16); Calcium 9.5 mg/dL (8.4-10.2); Carbon Dioxide 28 mmol/L (22-29); Chloride 106 mmol/L (96-108); Estimated Glomerular Filt Rate > 60; Glucose Random 92 mg/dL (60-115); Potassium 3.9 mmol/L (3.3-5.1); Sodium 140 mmol/L (135-145); Total Protein 7.6 g/dL (6.5-8.0)
[2024-09-18 12:16] LABS: Free T4 (Free Thyroxine) 1.09 ng/dL (0.71-1.85)
== END 2024-09-18 10:00 | disposition home or self-care (01) ==
LOC: HO.HHCL 09:59
PROVIDERS: Family Medicine; Visit Provider Registered Nurse
DX: F10.20 Alcohol dependence, uncomplicated (principal); R79.89 Other specified abnormal findings of blood chemistry; Z79.01 Long term (current) use of anticoagulants
CPT/HCPCS: 36415; 80053; 84439; 84443; 85025; 85610